=== PATIENT | female | born 1950 | race Caucasian/White ===

== ENCOUNTER 2019-10-14 13:53 | Observation (INO) | payer MEDICARE ==
[2019-10-14] MEDS ORDERED: SODIUM CHLORIDE 0.9% 1,000 ML IV STA (14:16)
--- NOTE | 2019-10-14 14:36 | ED ---
General Adult HPI - General Chief complaint: Shortness of Breath Stated complaint: Abnormal EKG Source: patient, RN notes reviewed, old records reviewed Mode of arrival: ambulatory Limitations: no limitations - History of Present Illness Initial comments: Patient is a 69-year-old female, who presents emergency department today with chief complaint of intermittent dizziness episodes. She also states that she's been having some shortness of breath with laying down. She's been noticing these symptoms since July. She reports that she is generally healthy, does not have a primary care physician. She denies any episodes of chest pain. Patient reports that the dizziness seems to be a rocking [id number] sensation. She denies any nausea or vomiting. She states that she was seen at [facility] and sent here for further evaluation. Patient reports that she did have her ear flushed that time. - Related Data Allergies Allergy/AdvReac Type Severity Reaction Status Date / Time No Known Allergies Allergy Verified 10/14/19 13:57 Review of Systems ROS Statement: Those systems with pertinent positive or pertinent negative responses have been documented in the HPI. ROS Other: All systems not noted in ROS Statement are negative. Past Medical History Past Medical History: No Reported History History of Any Multi-Drug Resistant Organisms: None Reported Past Surgical History: Hysterectomy Past Psychological History: Anxiety Smoking Status: Never smoker Past Alcohol Use History: None Reported Past Drug Use History: None Reported General Exam - General Exam Comments Initial Comments: 69 year old female. Limitations: no limitations General appearance: alert, in no apparent distress Head exam: Present: atraumatic Eye exam: Present: normal appearance, PERRL, EOMI. Absent: scleral icterus, conjunctival injection, periorbital swelling ENT exam: Present: normal exam Neck exam: Present: normal inspection. Absent: tenderness, meningismus, lymphadenopathy Respiratory exam: Present: normal lung sounds bilaterally, other (patient complains of orthopnea). Absent: respiratory distress, wheezes, rales, rhonchi, stridor Cardiovascular Exam: Present: regular rate, normal rhythm, normal heart sounds. Absent: systolic murmur, diastolic murmur, rubs, gallop, clicks GI/Abdominal exam: Present: soft, normal bowel sounds. Absent: distended, tenderness, guarding, rebound, rigid Extremities exam: Present: normal inspection, full ROM, normal capillary refill. Absent: tenderness, pedal edema, joint swelling, calf tenderness Back exam: Present: normal inspection Neurological exam: Present: alert, oriented X3, CN II-XII intact Psychiatric exam: Present: normal affect, normal mood Skin exam: Present: warm, dry, intact, normal color. Absent: rash Course Vital Signs 10/14/19 10/14/19 13:55 16:18 Temperature 98.5 F 98.6 F Pulse Rate 98 86 Respiratory 20 19 Rate Blood Pressure 142/98 138/84 O2 Sat by Pulse 99 98 Oximetry EKG Findings - EKG Comments: EKG Findings:: Sinus rhythm with occasional PVCs, biatrial quadrant. Possible anterior infarct age undetermined. Abnormal EKG. Ventricular rate of 80 bpm. Pulse 156 most seconds. She quaker a 60 ms. QT QTc is 358/433 ms. Medical Decision Making - Medical Decision Making 6-year-old female presents emergency department today with some intermittent dizziness, shortness of breath with laying down. She's been having symptoms for the past few months. At this time patient's labwork was reviewed and unremarkable including troponin and BNP. D-dimer is negative. Patient denies any specific chest pain at this time. She states that she does not her primary care doctor. She is worried because sometimes she does feel concern being by herself when she has some dizzy episodes. She does not describe this as vertigo like symptoms. At this time Patient was offered admission for further cardiac workup for dizziness and she is agreeable to be admitted. I discussed the case with Dr. Barrett who is agreeable to plan. He discussed the case with [facility] hospitalist. Discussed cardiology consult and echo will be ordered. - Lab Data Result diagrams: 10/14/19 14:35 10/14/19 14:35 Lab Results 10/14/19 10/14/19 10/14/19 Range/Units 14:35 14:35 14:35 WBC 9.6 (3.8-10.6) k/uL RBC 5.14 (3.80-5.40) m/uL Hgb 16.0 (11.4-16.0) gm/dL Hct 49.6 H (34.0-46.0) % MCV 96.6 (80.0-100.0) fL MCH 31.2 (25.0-35.0) pg MCHC 32.3 (31.0-37.0) g/dL RDW 12.1 (11.5-15.5) % Plt Count 306 (150-450) k/uL Neutrophils % 75 % Lymphocytes % 18 % Monocytes % 4 % Eosinophils % 1 % Basophils % 1 % Neutrophils # 7.3 (1.3-7.7) k/uL Lymphocytes # 1.8 (1.0-4.8) k/uL Monocytes # 0.3 (0-1.0) k/uL Eosinophils # 0.1 (0-0.7) k/uL Basophils # 0.1 (0-0.2) k/uL PT (9.0-12.0) sec INR (<1.2) APTT (22.0-30.0) sec D-Dimer (<0.60) mg/L FEU Sodium 138 (137-145) mmol/L Potassium 3.8 (3.5-5.1) mmol/L Chloride 104 (98-107) mmol/L Carbon Dioxide 20 L (22-30) mmol/L Anion Gap 14 mmol/L BUN 15 (7-17) mg/dL Creatinine 0.59 (0.52-1.04) mg/dL Est GFR (CKD-EPI)AfAm >90 (>60 ml/min/1.73 sqM) Est GFR (CKD-EPI)NonAf >90 (>60 ml/min/1.73 sqM) Glucose 110 H (74-99) mg/dL Calcium 10.2 (8.4-10.2) mg/dL Total Bilirubin 0.6 (0.2-1.3) mg/dL AST 33 (14-36) U/L ALT 22 (4-34) U/L Alkaline Phosphatase 92 (38-126) U/L Troponin I (0.000-0.034) ng/mL NT-Pro-B Natriuret Pep 167 pg/mL Total Protein 8.9 H (6.3-8.2) g/dL Albumin 5.2 H (3.5-5.0) g/dL Urine Color Urine Appearance (Clear) Urine pH (5.0-8.0) Ur Specific [place] (1.001-1.035) Urine Protein (Negative) Urine Glucose (UA) (Negative) Urine Ketones (Negative) Urine Blood (Negative) Urine Nitrite (Negative) Urine Bilirubin (Negative) Urine Urobilinogen (<2.0) mg/dL Ur Leukocyte Esterase (Negative) Urine WBC (0-5) /hpf Ur Squamous Epith Cells (0-4) /hpf Urine Bacteria (None) /hpf Urine Mucus (None) /hpf 10/14/19 10/14/19 10/14/19 Range/Units 14:35 14:35 14:35 WBC (3.8-10.6) k/uL RBC (3.80-5.40) m/uL Hgb (11.4-16.0) gm/dL Hct (34.0-46.0) % MCV (80.0-100.0) fL MCH (25.0-35.0) pg MCHC (31.0-37.0) g/dL RDW (11.5-15.5) % Plt Count (150-450) k/uL Neutrophils % % Lymphocytes % % Monocytes % % Eosinophils % % Basophils % % Neutrophils # (1.3-7.7) k/uL Lymphocytes # (1.0-4.8) k/uL Monocytes # (0-1.0) k/uL Eosinophils # (0-0.7) k/uL Basophils # (0-0.2) k/uL PT 10.1 (9.0-12.0) sec INR 1.0 (<1.2) APTT 23.7 (22.0-30.0) sec D-Dimer 0.27 (<0.60) mg/L FEU Sodium (137-145) mmol/L Potassium (3.5-5.1) mmol/L Chloride (98-107) mmol/L Carbon Dioxide (22-30) mmol/L Anion Gap mmol/L BUN (7-17) mg/dL Creatinine (0.52-1.04) mg/dL Est GFR (CKD-EPI)AfAm (>60 ml/min/1.73 sqM) Est GFR (CKD-EPI)NonAf (>60 ml/min/1.73 sqM) Glucose (74-99) mg/dL Calcium (8.4-10.2) mg/dL Total Bilirubin (0.2-1.3) mg/dL AST (14-36) U/L ALT (4-34) U/L Alkaline Phosphatase (38-126) U/L Troponin I <0.012 (0.000-0.034) ng/mL NT-Pro-B Natriuret Pep pg/mL Total Protein (6.3-8.2) g/dL Albumin (3.5-5.0) g/dL Urine Color Urine Appearance (Clear) Urine pH (5.0-8.0) Ur Specific [place] (1.001-1.035) Urine Protein (Negative) Urine Glucose (UA) (Negative) Urine Ketones (Negative) Urine Blood (Negative) Urine Nitrite (Negative) Urine Bilirubin (Negative) Urine Urobilinogen (<2.0) mg/dL Ur Leukocyte Esterase (Negative) Urine WBC (0-5) /hpf Ur Squamous Epith Cells (0-4) /hpf Urine Bacteria (None) /hpf Urine Mucus (None) /hpf 10/14/19 Range/Units 14:51 WBC (3.8-10.6) k/uL RBC (3.80-5.40) m/uL Hgb (11.4-16.0) gm/dL Hct (34.0-46.0) % MCV (80.0-100.0) fL MCH (25.0-35.0) pg MCHC (31.0-37.0) g/dL RDW (11.5-15.5) % Plt Count (150-450) k/uL Neutrophils % % Lymphocytes % % Monocytes % % Eosinophils % % Basophils % % Neutrophils # (1.3-7.7) k/uL Lymphocytes # (1.0-4.8) k/uL Monocytes # (0-1.0) k/uL Eosinophils # (0-0.7) k/uL Basophils # (0-0.2) k/uL PT (9.0-12.0) sec INR (<1.2) APTT (22.0-30.0) sec D-Dimer (<0.60) mg/L FEU Sodium (137-145) mmol/L Potassium (3.5-5.1) mmol/L Chloride (98-107) mmol/L Carbon Dioxide (22-30) mmol/L Anion Gap mmol/L BUN (7-17) mg/dL Creatinine (0.52-1.04) mg/dL Est GFR (CKD-EPI)AfAm (>60 ml/min/1.73 sqM) Est GFR (CKD-EPI)NonAf (>60 ml/min/1.73 sqM) Glucose (74-99) mg/dL Calcium (8.4-10.2) mg/dL Total Bilirubin (0.2-1.3) mg/dL AST (14-36) U/L ALT (4-34) U/L Alkaline Phosphatase (38-126) U/L Troponin I (0.000-0.034) ng/mL NT-Pro-B Natriuret Pep pg/mL Total Protein (6.3-8.2) g/dL Albumin (3.5-5.0) g/dL Urine Color Light Yellow Urine Appearance Clear (Clear) Urine pH 5.0 (5.0-8.0) Ur Specific [place] 1.005 (1.001-1.035) Urine Protein Negative (Negative) Urine Glucose (UA) Negative (Negative) Urine Ketones Trace H (Negative) Urine Blood Negative (Negative) Urine Nitrite Negative (Negative) Urine Bilirubin Negative (Negative) Urine Urobilinogen <2.0 (<2.0) mg/dL Ur Leukocyte Esterase Trace H (Negative) Urine WBC 3 (0-5) /hpf Ur Squamous Epith Cells <1 (0-4) /hpf Urine Bacteria Moderate H (None) /hpf Urine Mucus Rare H (None) /hpf Disposition Clinical Impression: Dizziness, Orthopnea Disposition: ADMITTED IP TO THIS HOSP Condition: Stable Is patient prescribed a controlled substance at d/c from ED?: No Referrals: None,Stated [Primary Care Provider] - 1-2 days Time of Disposition: 16:51
[2019-10-14 14:50] LABS: Basophils # (A) 0.1 k/uL (0-0.2); Basophils % (A) 1 %; Eosinophils # (A) 0.1 k/uL (0-0.7); Eosinophils % (A) 1 %; HCT 49.6 % (34.0-46.0); Lymphocytes # (A) 1.8 k/uL (1.0-4.8); Lymphocytes % (A) 18 %; MCH 31.2 pg (25.0-35.0); MCHC 32.3 g/dL (31.0-37.0); MCV 96.6 fL (80.0-100.0); Mean Platelet Volume 7.5; Monocytes # (A) 0.3 k/uL (0-1.0); Monocytes % (A) 4 %; Neutrophils # (A) 7.3 k/uL (1.3-7.7); Neutrophils % (A) 75 %; Platelet Count 306 k/uL (150-450); RBC 5.14 m/uL (3.80-5.40); RDW 12.1 % (11.5-15.5); WBC 9.6 k/uL (3.8-10.6)
[2019-10-14 14:56] LABS: ALT 22 U/L (4-34); AST 33 U/L (14-36); African American GFR (CKD) >90 (>60 ml/min/1.73 sqM); Albumin 5.2 g/dL (3.5-5.0); Alkaline Phosphatase 92 U/L (38-126); Anion Gap 14 mmol/L; Blood Urea Nitrogen 15 mg/dL (7-17); Calcium 10.2 mg/dL (8.4-10.2); Carbon Dioxide 20 mmol/L (22-30); Chloride 104 mmol/L (98-107); Glucose 110 mg/dL (74-99); Non-African American GFR(CKD) >90 (>60 ml/min/1.73 sqM); Potassium 3.8 mmol/L (3.5-5.1); Sodium 138 mmol/L (137-145); Total Bilirubin 0.6 mg/dL (0.2-1.3); Total Protein 8.9 g/dL (6.3-8.2)
[2019-10-14 14:57] LABS: Appearance,Urine Clear (Clear); Bacteria,Urine Moderate /hpf; Bilirubin,Urine Negative (Negative); Blood,Urine Negative (Negative); Color,Urine Light Yellow; Glucose,Urine (UA) Negative (Negative); Ketones,Urine Trace (Negative); Leukocyte Esterase,Urine Trace (Negative); Mucus,Urine Rare /hpf; Nitrite,Urine Negative (Negative); Protein,Urine Negative (Negative); Specific Gravity,Urine 1.005 (1.001-1.035); Squamous Epithelial Cell,Urine <1 /hpf (0-4); Urobilinogen,Urine <2.0 mg/dL (<2.0); WBC,Urine 3 /hpf (0-5)
[2019-10-14 15:00] LABS: Partial Thromboplastin Time 23.7 sec (22.0-30.0); Prothrombin Time 10.1 sec (9.0-12.0)
--- NOTE | 2019-10-14 15:23 | XR ---
EXAMINATION TYPE: XR chest 2V DATE OF EXAM: 10/14/2019 COMPARISON: NONE HISTORY: Dizziness and shortness of breath TECHNIQUE: Frontal and lateral views of the chest are obtained. FINDINGS: There is no focal air space opacity, pleural effusion, or pneumothorax seen. There is pul monary hyperinflation and flattening of the diaphragms, suggesting COPD. The cardiac silhouette size is within normal limits. The osseous structures are intact. Mild multilevel degenerative changes of the spine and diffuse osseous demineralization. There is a levoscoliosis of the thoracolumbar juncti on. IMPRESSION: No acute cardiopulmonary process. COPD.
[2019-10-14] MEDS ORDERED: ONDANSETRON 4 MG/2 ML VIAL IVP PRN (16:51)
[2019-10-14] MEDS ORDERED: ACETAMINOPHEN TAB 325 MG TAB PO PRN (16:51)
[2019-10-14] MEDS ORDERED: NALOXONE 0.4 MG/ML 1 ML VIAL IV PRN (16:51)
[2019-10-14] MEDS ORDERED: MORPHINE SULFATE 4 MG/ML SYRINGE IV PRN (16:51)
[2019-10-14] MEDS ORDERED: IBUPROFEN 400 MG TAB PO PRN (16:51)
[2019-10-14] MEDS: SODIUM CHLORIDE 0.9% 1,000 ML IV SCH (17:30)
[2019-10-14] MEDS ORDERED: ALPRAZolam 0.25 MG TAB PO PRN (21:16)
[2019-10-15 03:57] LABS: Cholesterol 225 mg/dL (<200); HDL Cholesterol 78 mg/dL (40-60); LDL Cholesterol,Calculated 128 mg/dL (0-99); Triglycerides 93 mg/dL (<150)
[2019-10-15] MEDS: SODIUM CHLORIDE 0.9% 1,000 ML IV SCH (04:12)
[2019-10-15 07:57] VITALS: RESP 18
[2019-10-15 11:32] VITALS: TEMP 97.5
--- NOTE | 2019-10-15 12:01 | ECHOF ---
Referral Reason:dizziness MEASUREMENTS -------- HEIGHT: 157.5 cm WEIGHT: 47.2 kg BP: RVIDd: 2.6 cm (< 3.3) IVSd: 1.0 cm (0.6 - 1.1) LVIDd: 2.8 cm (3.9 - 5.3) LVPWd: 0.8 cm (0.6 - 1.1) IVSs: 1.2 cm LVIDs: 1.6 cm LVPWs: 1.1 cm LA Diam: 2.2 cm (2.7 - 3.8) LAESV Index (A-L): 15.00 ml/m Ao Diam: 2.5 cm (2.0 - 3.7) AV Cusp: 1.9 cm (1.5 - 2.6) MV EXCURSION: 13.883 mm (> 18.000) MV EF SLOPE: 63 mm/s (70 - 150) EPSS: 0.2 cm MV E Cecilio: 1.18 m/s MV DecT: 205 ms MV A Cecilio: 0.75 m/s MV E/A Ratio: 1.57 RAP: 5.00 mmHg RVSP: 26.80 mmHg TAPSE: 25.05 mm FINDINGS -------- Sinus rhythm. This was a technically adequate study. The left ventricular size is normal. Left ventricular wall thickness is normal. Overall left vent ricular systolic function is normal with, an EF between 60 - 65 %. The right ventricle is normal in size. Normal LA size by volume 22+/-6 ml/m2. The right atrium is normal in size. Interatrial and interventricular septum intact. The aortic valve is trileaflet and appears structurally normal. The mitral valve is normal. Mild tricuspid regurgitation present. Right ventricular systolic pressure is normal at < 35 mmHg. There is no pulmonic regurgitation present. The aortic root size is normal. Normal inferior vena cava with normal inspiratory collapse consistent with estimated right atrial pre ssure of 5 mmHg. There is no pericardial effusion. CONCLUSIONS -------- 1. Sinus rhythm. 2. This was a technically adequate study. 3. The left ventricular size is normal. 4. Left ventricular wall thickness is normal. 5. Overall left ventricular systolic function is normal with, an EF between 60 - 65 %. 6. The right ventricle is normal in size. 7. Normal LA size by volume 22+/-6 ml/m2. 8. The right atrium is normal in size. 9. Interatrial and interventricular septum intact. 10. The aortic valve is trileaflet and appears structurally normal. 11. The mitral valve is normal. 12. Mild tricuspid regurgitation present. 13. Right ventricular systolic pressure is normal at < 35 mmHg. 14. There is no pulmonic regurgitation present. 15. The aortic root size is normal. 16. Normal inferior vena cava with normal inspiratory collapse consistent with estimated right atrial pressure of 5 mmHg. 17. There is no pericardial effusion. MANNEQUIN MOLD MAKER: Halle Easton RDCS
[2019-10-15 12:46] VITALS: BP 149/87; PULSE 58
--- NOTE | 2019-10-15 13:06 | P.CRDCN ---
History of Present Illness History of present illness: HISTORY OF PRESENTING ILLNESS This is a pleasant 69-year-old female with no significant past medical history. She denies prior history of coronary artery disease, hypertension, marcie betes mellitus or dyslipidemia. She does not follow in the office with a risk engineer for any reason. We have been asked to see in consultation for dizziness. She states she presented to the hospital with symptoms of shortness of breath when she lays down at night. The shortness of breath is mild and does not cause her to not sleep. She denies chest pain or palpitations. She also feels increasingly weak and dizzy sometimes when she changes positions. DIAGNOSTICS EKG reveals sinus mechanism with biatrial enlargement. Chest xray negative for an acute process. Laboratory reviewed, CBC unremarkable, d-dimer 0.27, sodium 138, potassium 3.8, creatinine 0.59, cardiac enzymes negative x3, NTproBNP 167, LDL 128. She takes no daily cardiac medications. REVIEW OF SYSTEMS At the time of my exam: CONSTITUTIONAL: Denies fever or chills. CARDIOVASCULAR: Denies chest pain, shortness of breath, orthopnea, PND or palpitations. RESPIRATORY: Denies cough. GASTROINTESTINAL: Denies abdominal pain, diarrhea, constipation, nausea or vomiting. MUSCULOSKELETAL: Denies myalgias. NEUROLOGIC: Denies numbness, tingling or weakness. ENDOCRINE: Denies fatigue, weight change, polydipsia or polyurina. GENITOURINARY: Denies burning, hematuria or urgency with micturation. HEMATOLOGIC: Denies history of anemia or bleeding. PHYSICAL EXAMINATION Blood pressure 120/77 heart rate 69 afebrile and maintaining oxygen saturation on room air. CONSTITUTIONAL: No apparent distress. HEENT: Head is normocephalic. Pupils are equal, round. Sclerae anicteric. Mucous membranes of the mouth are moist. No JVD. No carotid bruit. CHEST EXAMINATION: Lungs are clear to auscultation. No chest wall tenderness is noted on palpation or with deep breathing. HEART EXAMINATION: Regular rate and rhythm. S1, S2 heard. No murmurs, gallops or rub. ABDOMEN: Soft, nontender. Positive bowel sounds. EXTREMITIES: 2+ peripheral pulses, no lower extremity edema and no calf tenderness. NEUROLOGIC EXAMINATION: Patient is awake, alert and oriented x3. ASSESSMENT Orthopnea Dizziness with activity Dyslipidemia PLAN An acute coronary event has been ruled out. Obtain 2D echocardiogram and doppler study. Orthostatics requested and unremarkable. Telemetry tracings normal with no evidence of arrhythmia. Recommend outpatient stress test when dizziness has resolved. Thank you kindly for this consultation. Nurse Practitioner note has been reviewed, I agree with a documented findings and plan of care. Patient was seen and examined. Past Medical History Past Medical History: No Reported History History of Any Multi-Drug Resistant Organisms: None Reported Past Surgical History: Appendectomy, Bladder Surgery, Section, Hy sterectomy Past Anesthesia/Blood Transfusion Reactions: No Reported Reaction Past Psychological History: Anxiety Smoking Status: Never smoker Past Alcohol Use History: None Reported Past Drug Use History: None Reported Medications and Allergies Home Medications Medication Instructions Recorded Confirmed Type No Known Home Medications 10/14/19 10/14/19 History Allergies Allergy/AdvReac Type Severity Reaction Status Date / Time No Known Allergies Allergy Verified 10/14/19 17:12 Physical Exam Vitals: Vital Signs Temp Pulse Pulse Pulse Resp BP BP 10/15/19 07:25 97.2 F L 69 18 120/77 10/15/19 03:58 98.0 F 67 16 114/72 10/14/19 23:29 98.0 F 61 16 134/67 10/14/19 19:11 98.3 F 89 16 133/89 10/14/19 18:13 10/14/19 17:47 97.5 F L 66 18 154/93 10/14/19 16:18 98.6 F 86 19 138/84 10/14/19 13:55 98.5 F 98 20 142/98 Pulse Ox 10/15/19 07:25 99 10/15/19 03:58 98 10/14/19 23:29 97 10/14/19 19:11 98 10/14/19 18:13 100 10/14/19 17:47 100 10/14/19 16:18 98 10/14/19 13:55 99 Intake and Output 10/14/19 10/15/19 10/15/19 22:59 06:59 14:59 Intake Total 200 Balance 200 Intake: Oral 200 Other: Voiding Method Toilet Toilet # Voids 2 Weight 47.491 kg Results 10/14/19 14:35 10/14/19 14:35 Cardiac Enzymes 10/14/19 10/14/19 10/14/19 Range/Units 14:35 14:35 20:04 AST 33 (14-36) U/L Troponin I <0.012 <0.012 (0.000-0.034) ng/mL 10/15/19 Range/Units 03:26 AST (14-36) U/L Troponin I <0.012 (0.000-0.034) ng/mL Coagulation 10/14/19 Range/Units 14:35 PT 10.1 (9.0-12.0) sec APTT 23.7 (22.0-30.0) sec Lipids 10/15/19 Range/Units 03:29 Triglycerides 93 (<150) mg/dL Cholesterol 225 H (<200) mg/dL HDL Cholesterol 78 H (40-60) mg/dL CBC 10/14/19 Range/Units 14:35 WBC 9.6 (3.8-10.6) k/uL RBC 5.14 (3.80-5.40) m/uL Hgb 16.0 (11.4-16.0) gm/dL Hct 49.6 H (34.0-46.0) % Plt Count 306 (150-450) k/uL Comprehensive Metabolic Panel 10/14/19 Range/Units 14:35 Sodium 138 (137-145) mmol/L Potassium 3.8 (3.5-5.1) mmol/L Chloride 104 (98-107) mmol/L Carbon Dioxide 20 L (22-30) mmol/L BUN 15 (7-17) mg/dL Creatinine 0.59 (0.52-1.04) mg/dL Glucose 110 H (74-99) mg/dL Calcium 10.2 (8.4-10.2) mg/dL AST 33 (14-36) U/L ALT 22 (4-34) U/L Alkaline Phosphatase 92 (38-126) U/L Total Protein 8.9 H (6.3-8.2) g/dL Albumin 5.2 H (3.5-5.0) g/dL Current Medications Generic Name Dose Route Start Last Admin Trade Name Freq PRN Reason Stop Dose Admin Acetaminophen 650 mg 10/14/19 16:51 Tylenol Tab PO Q6HR PRN Mild Pain or Fever > 100.5 Alprazolam 0.25 mg 10/14/19 21:16 10/14/19 21:26 Xanax PO 0.25 mg HS PRN Administration Anxiety Sodium Chloride 1,000 mls @ 100 mls/hr 10/14/19 17:00 10/15/19 04:12 Saline 0.9% IV 100 mls/hr .Q10H ZAY Administration Ibuprofen 400 mg 10/14/19 16:51 Motrin PO Q6HR PRN Mild Pain or Fever > 100.5 Morphine Sulfate 4 mg 10/14/19 16:51 Morphine Sulfate (Inj) IV Q4HR PRN Severe Pain Naloxone HCl 0.2 mg 10/14/19 16:51 Narcan IV Q2M PRN Opioid Reversal Ondansetron HCl 4 mg 10/14/19 16:51 Zofran IVP Q8HR PRN Nausea And Vomiting Intake and Output 10/14/19 10/15/19 10/15/19 22:59 06:59 14:59 Intake Total 200 Balance 200 Intake: Oral 200 Other: Voiding Method Toilet Toilet # Voids 2 Weight 47.491 kg 10/14/19 14:35 10/14/19 14:35
--- NOTE | 2019-10-15 14:39 | P.HPIM ---
History of Present Illness Diagnoses: -Dizziness, nonspecific. Mostly related to her dehydration -Orthostasis were positive, improved with her hydration -Decreased eating and drinking, patient has good appetite today and ate her meals. This is a pleasant 69 years old female with no significant past medical history, and she does not follow up with primary care doctor and she does not take medication as she does not like to do that. She is feeling dizziness for a few days duration, her dizziness was nonspecific, no vertigo or room spinning around her head, no chest pain or dyspnea, no change in urine or bowel habits or vomiting. No other complaints. However patient says for the last few days she's not been eating and drinking well, also she was to use C salt and she stopped doing that lately, which might contribute to her dizziness. Patient r eceived 1 L of normal saline and started on and later per hour, and her dizziness is significantly improved. Patient says that back to her baseline and she wants to be discharged. Patient denies depression, hallucination or delusions. She denies suicidal ideation Patient also stated that she has good appetite today and she finished all her meals. Vitas looks stable, however on admission patient has positive orthostasis, with blood pressure coming down from 147/84 lying to 125/83 sating, with hydration this is improved to 149/87 supine and 131/90 sitting.( unremarkable cbc, inr 1.0 , d-dimer is negative. And 0.27, BMP is unremarkable, serial troponins are negative, UA is suspicious of infection. cardiology evaluated the patient and recommended outpatient stress test and dizziness resol marcia To the emergency room patient received 1 L of normal saline and started on fluids at 100 ml per hour. echocardiogram showing ejection fraction of 60-65%, with aortic valve appears structurally normal. Patient has been evaluated by general technician and cleared her for discharge Problems and management plan were discussed with the patient and he verbalized understanding and acceptance Patient was found stable and can be discharged home however he needs follow-up as an outpatient. Patient was instructed to follow up with PCP within one week and patient agrees. Patient wants to follow up with PCP and general technician at her down, patient is encouraged to call her insurance and find PCP and general technician closer to home. However she was instructed that names for PCP and cardiology around this area will be provided for her and she agrees. Patient wants to make her own appointments. Review of systems CONSTITUTIONAL: No fever, no malaise, no fatigue. HEENT: No recent visual problems or hearing problems. Denied any sore throat. CARDIOVASCULAR: No orthopnea, PND, no palpitations, no syncope. PULMONARY: No shortness of breath, no cough, no hemoptysis. GASTROINTESTINAL: No diarrhea, no nausea, no vomiting, no abdominal pain. Normoactive bowel sounds. NEUROLOGICAL: No headaches, no weakness, no numbness. HEMATOLOGICAL: Denies any bleeding or petechiae. GENITOURINARY: Denies any burning micturition, frequency, or urgency. MUSCULOSKELETAL/RHEUMATOLOGICAL: Denies any joint pain, swelling, or any muscle pain. ENDOCRINE: Denies any polyuria or polydipsia. Physical exam Gen: patient is a AAOx3, no distress -Head and neck: Pupils are equal and reactive to light. Mucous membranes are slightly dry CVS: S1-S2, RRR, no murmur Lungs: B/L CTA, no wheezing Abdomen: soft, no distention, no tenderness, positive bowel sounds Extremity: no leg edema or induration Time spent more than 35 minutes Review of Systems CONSTITUTIONAL: No fever, no malaise, no fatigue. HEENT: No recent visual problems or hearing problems. Denied any sore throat. CARDIOVASCULAR: No orthopnea, PND, no palpitations, no syncope. PULMONARY: No shortness of breath, no cough, no hemoptysis. GASTROINTESTINAL: No diarrhea, no nausea, no vomiting, no abdominal pain. No rmoactive bowel sounds. NEUROLOGICAL: No headaches, no weakness, no numbness. HEMATOLOGICAL: Denies any bleeding or petechiae. GENITOURINARY: Denies any burning micturition, frequency, or urgency. MUSCULOSKELETAL/RHEUMATOLOGICAL: Denies any joint pain, swelling, or any muscle pain. ENDOCRINE: Denies any polyuria or polydipsia. Past Medical History Past Medical History: No Reported History History of Any Multi-Drug Resistant Organisms: None Reported Past Surgical History: Appendectomy, Bladder Surgery, Section, Hysterectomy Past Anesthesia/Blood Transfusion Reactions: No Reported Reaction Past Psychological History: Anxiety Smoking Status: Never smoker Past Alcohol Use History: None Reported Past Drug Use History: None Reported Medications and Allergies Home Medications Medication Instructions Recorded Confirmed Type No Known Home Medications 10/14/19 10/14/19 History Allergies Allergy/AdvReac Type Severity Reaction Status Date / Time No Known Allergies Allergy Verified 10/14/19 17:12 Physical Exam Vitals: Vital Signs Temp Pulse Pulse Pulse Pulse Pulse Pulse 10/15/19 12:45 60 72 58 L 10/15/19 12:00 67 61 62 72 63 10/15/19 11:31 97.5 F L 61 10/15/19 08:46 62 72 63 10/15/19 08:00 67 69 62 72 63 10/15/19 07:25 97.2 F L 69 10/15/19 03:58 98.0 F 67 10/14/19 23:29 98.0 F 61 10/14/19 19:11 98.3 F 89 10/14/19 18:13 10/14/19 17:47 97.5 F L 66 10/14/19 16:18 98.6 F 86 Resp BP BP BP BP BP Pulse Ox 10/15/19 12:45 145/82 131/90 149/87 10/15/19 12:00 18 10/15/19 11:31 18 144/80 95 10/15/19 08:46 125/80 125/83 147/84 100 10/15/19 08:00 18 10/15/19 07:25 18 120/77 99 10/15/19 03:58 16 114/72 98 10/14/19 23:29 16 134/67 97 10/14/19 19:11 16 133/89 98 10/14/19 18:13 100 10/14/19 17:47 18 154/93 100 10/14/19 16:18 19 138/84 98 Intake and Output 10/14/19 10/15/19 10/15/19 22:59 06:59 14:59 Intake Total 200 Balance 200 Intake: Oral 200 Other: Voiding Method Toilet Toilet Toilet # Voids 2 Weight 47.491 kg GENERAL: The patient is alert and oriented x3, not in any acute distress. Well developed, well nourished. HEENT: Pupils are round and equally reacting to light. EOMI. No scleral icterus. No conjunctival pallor. Normocephalic, atraumatic. No pharyngeal erythema. No thyromegaly. CARDIOVASCULAR: S1 and S2 present. No murmurs, rubs, or gallops. PULMONARY: Chest is clear to auscultation, no wheezing or crackles. ABDOMEN: Soft, nontender, nondistended, normoactive bowel sounds. No palpable organomegaly. MUSCULOSKELETAL: No joint swelling or deformity. EXTREMITIES: No cyanosis, clubbing, or pedal edema. NEUROLOGICAL: Gross neurological examination did not reveal any focal deficits. SKIN: No rashes. No petechiae Results CBC & Chem 7: 10/14/19 14:35 10/14/19 14:35 Labs: Abnormal Lab Results - Last 24 Hours (Table) 10/14/19 10/14/19 10/14/19 Range/Units 14:35 14:35 14:51 Hct 49.6 H (34.0-46.0) % Carbon Dioxide 20 L (22-30) mmol/L Glucose 110 H (74-99) mg/dL Total Protein 8.9 H (6.3-8.2) g/dL Albumin 5.2 H (3.5-5.0) g/dL Cholesterol (<200) mg/dL LDL Cholesterol, Calc (0-99) mg/dL HDL Cholesterol (40-60) mg/dL Urine Ketones Trace H (Negative) Ur Leukocyte Esterase Trace H (Negative) Urine Bacteria Moderate H (None) /hpf Urine Mucus Rare H (None) /hpf 10/15/19 Range/Units 03:29 Hct (34.0-46.0) % Carbon Dioxide (22-30) mmol/L Glucose (74-99) mg/dL Total Protein (6.3-8.2) g/dL Albumin (3.5-5.0) g/dL Cholesterol 225 H (<200) mg/dL LDL Cholesterol, Calc 128 H (0-99) mg/dL HDL Cholesterol 78 H (40-60) mg/dL Urine Ketones (Negative) Ur Leukocyte Esterase (Negative) Urine Bacteria (None) /hpf Urine Mucus (None) /hpf Thrombosis Risk Factor Assmnt - Choose All That Apply Any of the Below Risk Factors Present?: No Other Risk Factors: Yes
== END 2019-10-15 15:15 | disposition home or self-care (01) ==
LOC: EC 13:53 → 1SOBS 16:48
PROVIDERS: ADMIT Hospitalist; ATTEND Hospitalist
DX: R42 Dizziness and giddiness (principal); E86.0 Dehydration; E78.5 Hyperlipidemia, unspecified; F41.9 Anxiety disorder, unspecified; Z90.710 Acquired absence of both cervix and uterus; I51.7 Cardiomegaly; R06.01 Orthopnea
CPT/HCPCS: 93005 ×2; 96361; 96360; 99285; 36415; 93306; 85379; 83880; 80061; 80053; 84484 ×2; 85025; 85610; 85730; 81001; 71046; G0378 ×2

== ENCOUNTER 2019-10-15 23:50 | Emergency (ER) | payer MEDICARE ==
[2019-10-16] MEDS ORDERED: SODIUM CHLORIDE 0.9% 1,000 ML IV STA (00:08)
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
[2019-10-16 00:33] LABS: Basophils # (A) 0.1 k/uL (0-0.2); Basophils % (A) 1 %; Eosinophils # (A) 0.2 k/uL (0-0.7); Eosinophils % (A) 2 %; HCT 47.6 % (34.0-46.0); HGB 15.3 gm/dL (11.4-16.0); Lymphocytes # (A) 2.5 k/uL (1.0-4.8); Lymphocytes % (A) 30 %; MCH 31.2 pg (25.0-35.0); MCV 97.4 fL (80.0-100.0); Mean Platelet Volume 7.8; Monocytes # (A) 0.4 k/uL (0-1.0); Monocytes % (A) 5 %; Neutrophils # (A) 5.1 k/uL (1.3-7.7); Neutrophils % (A) 61 %; Platelet Count 290 k/uL (150-450); RBC 4.89 m/uL (3.80-5.40); RDW 12.3 % (11.5-15.5); WBC 8.4 k/uL (3.8-10.6)
[2019-10-16 00:43] LABS: ALT 24 U/L (4-34); AST 33 U/L (14-36); African American GFR (CKD) >90 (>60 ml/min/1.73 sqM); Albumin 4.7 g/dL (3.5-5.0); Alkaline Phosphatase 79 U/L (38-126); Anion Gap 11 mmol/L; Blood Urea Nitrogen 16 mg/dL (7-17); Calcium 9.5 mg/dL (8.4-10.2); Carbon Dioxide 22 mmol/L (22-30); Chloride 108 mmol/L (98-107); Creatine Kinase 51 U/L (30-135); Glucose 140 mg/dL (74-99); Magnesium 2.4 mg/dL (1.6-2.3); Non-African American GFR(CKD) >90 (>60 ml/min/1.73 sqM); Phosphorus 3.4 mg/dL (2.5-4.5); Potassium 3.6 mmol/L (3.5-5.1); Sodium 141 mmol/L (137-145); Total Bilirubin 0.6 mg/dL (0.2-1.3)
[2019-10-16 00:50] LABS: D-Dimer 0.28 mg/L FEU (<0.60); Partial Thromboplastin Time 23.4 sec (22.0-30.0); Prothrombin Time 10.1 sec (9.0-12.0)
[2019-10-16 02:11] LABS: Appearance,Urine Clear (Clear); Bacteria,Urine Few /hpf; Bilirubin,Urine Negative (Negative); Blood,Urine Negative (Negative); Color,Urine Light Yellow; Glucose,Urine (UA) Trace (Negative); Ketones,Urine Negative (Negative); Leukocyte Esterase,Urine Large (Negative); Mucus,Urine Rare /hpf; Nitrite,Urine Positive (Negative); Protein,Urine Negative (Negative); RBC,Urine 3 /hpf (0-5); Specific Gravity,Urine 1.008 (1.001-1.035); Squamous Epithelial Cell,Urine 1 /hpf (0-4); Urobilinogen,Urine <2.0 mg/dL (<2.0); WBC,Urine 41 /hpf (0-5)
[2019-10-16] MEDS ORDERED: cefTRIAXone IN SWFI 1,000 MG/10 ML SYRINGE IVP STA (02:30)
[2019-10-16] MEDS ORDERED: NITROFURANTOIN MONOHYD/M-CRYST 100 MG CAP PO STA (02:30)
[2019-10-16 02:54] VITALS: BP 149/92; PULSE 69; RESP 18; TEMP 98
== END 2019-10-16 03:07 | disposition home or self-care (01) ==
LOC: EC 23:50
DX: N39.0 Urinary tract infection, site not specified (principal); E86.0 Dehydration
CPT/HCPCS: 36415; 93005; 85379; 83880; 80053; 82550; 83605; 83735; 84100; 84484; 85025; 85610; 85730; 81001; 87086; 87077; 87186; 99285; 96374; 96361; J0696

== ENCOUNTER 2022-12-15 15:49 | Observation (INO) | payer MEDICARE ==
[2022-12-15] MEDS ORDERED: SODIUM CHLORIDE 0.9% 1,000 ML IV STA (16:25)
--- NOTE | 2022-12-15 16:31 | ED ---
General Adult HPI - General Chief complaint: Headache Stated complaint: weakness Time Seen by Provider: 12/15/22 16:05 Source: patient, job development specialist Mode of arrival: EMS Limitations: no limitations - History of Present Illness Initial comments: 72-year-old female presents emergency room with multiple complaints. Reports to presyncope, headache, pressure at the base of her neck, plugged ears, nausea, left foot numbness. States that her symptoms have been going on for the past several weeks, and even months. She has had to see primary care regarding her symptoms. Reports that her symptoms are worse upon standing. Has some blurred vision. No unilateral numbness or weakness. No history of stroke. No speech deficit. Denies fevers. No vomiting. Denies any chest pain. Does admit to mild shortness of breath. No diarrhea. No black or bloody stools. No urinary complaints. No other alleviating, precipitating or modifying factors - Related Data Home Medications Medication Instructions Recorded Confirmed Atorvastatin Calcium 10 mg PO HS 12/15/22 12/15/22 Allergies Allergy/AdvReac Type Severity Reaction Status Date / Time No Known Allergies Allergy Verified 12/15/22 19:03 Review of Systems ROS Statement: Those systems with pertinent positive or pertinent negative responses have been documented in the HPI. ROS Other: All systems not noted in ROS Statement are negative. Past Medical History Past Medical History: No Reported History History of Any Multi-Drug Resistant Organisms: None Reported Past Surgical History: Appendectomy, Bladder Surgery, Section, Hysterectomy Past Anesthesia/Blood Transfusion Reactions: No Reported Reaction Past Psychological History: Anxiety Past Alcohol Use History: None Reported Past Drug Use History: None Reported General Exam Limitations: no limitations General appearance: alert, in no apparent distress Head exam: Present: atraumatic, normocephalic, normal inspection Eye exam: Present: normal appearance, PERRL, EOMI. Absent: scleral icterus, conjunctival injection, periorbital swelling ENT exam: Present: normal exam, mucous membranes moist Neck exam: Present: normal inspection. Absent: tenderness, meningismus, lymphadenopathy Respiratory exam: Present: normal lung sounds bilaterally. Absent: respiratory distress, wheezes, rales, rhonchi, stridor Cardiovascular Exam: Present: regular rate, normal rhythm, normal heart sounds. Absent: systolic murmur, diastolic murmur, rubs, gallop, clicks GI/Abdominal exam: Present: soft, normal bowel sounds. Absent: distended, tenderness, guarding, rebound, rigid Extremities exam: Present: normal inspection, full ROM, normal capillary refill, other (2+ DP and PT pulses. Cap refill less than 3 seconds.). Absent: tenderness, pedal edema, joint swelling, calf tenderness Back exam: Present: normal inspection Neurological exam: Present: alert, oriented X3, CN II-XII intact Psychiatric exam: Present: normal affect, normal mood Skin exam: Present: warm, dry, intact, normal color. Absent: rash Course Vital Signs 12/15/22 12/15/22 12/15/22 15:55 17:40 19:52 Temperature 97.8 F Pulse Rate 71 69 66 Respiratory 19 19 18 Rate Blood Pressure 156/83 161/89 O2 Sat by Pulse 100 99 Oximetry EKG Findings - EKG Comments: EKG Findings:: EKG demonstrates sinus rhythm with a rate of 67. MS interval 158. QRS 85. QTC 413. No acute ST segment elevations. Inverted T-wave in lead 3 Medical Decision Making - Medical Decision Making Was pt. sent in by a medical professional or institution (, PA, LINOTYPE OPERATOR, urgent care, hospital, or senior living...) When possible be specific @ -[No] Did you speak to anyone other than the patient for history (EMS, parent, family, police, friend...)? What history was obtained from this source @ -[No] Did you review nursing and triage notes (agree or disagree)? Why? @ -[I reviewed and agree with nursing and triage notes] Were old charts reviewed (outside hosp., previous admission, EMS record, old EKG, old radiological studies, urgent care reports/EKG's, senior living records)? Report findings @ -[No old charts were reviewed] Differential Diagnosis (chest pain, altered mental status, abdominal pain women, abdominal pain men, vaginal bleeding, weakness, fever, dyspnea, syncope, headache, dizziness, GI bleed, back pain, seizure, CVA, palpatations, mental health, musculoskeletal)? @ -[not applicable] EKG interpreted by me (3pts min.). @ -[As above] X-rays interpreted by me (1pt min.). @ -[None done] CT interpreted by me (1pt min.). @ -[None done] U/S interpreted by me (1pt. min.). @ -[None done] What testing was considered but not performed or refused? (CT, X-rays, U/S, labs)? Why? @ -[None] What meds were considered but not given or refused? Why? @ -[None] Did you discuss the management of the patient with other professionals (professionals i.e. Dr., PA, LINOTYPE OPERATOR, lab, RT, psych nurse, social service technician, lawyer real estate, teacher, radiological defense officer, complex case manager)? Give summary @ -[No] Was smoking cessation discussed for >3mins.? @ -[No] Was critical care preformed (if so, how long)? @ -[No] Were there social determinants of health that impacted care today? How? (H omelessness, low income, unemployed, alcoholism, drug addiction, transportation, low edu. Level, literacy, decrease access to med. care, detention, rehab)? @ -[No] Was there de-escalation of care discussed even if they declined (Discuss DNR or withdrawal of care, Hospice)? DNR status @ -[No] What co-morbidities impacted this encounter? (DM, HTN, Smoking, COPD, CAD, Cancer, CVA, ARF, Chemo, Hep., AIDS, mental health diagnosis, sleep apnea, morbid obesity)? @ -[None] Was patient admitted / discharged? Hospital course, mention meds given and route, prescriptions, significant lab abnormalities, going to OR and other pertinent info. @ -Upon arrival patient was placed into room 1. History of physical exam is performed. IV is established laboratory studies were conducted. Patient is positive for Covid. CT demonstrates no acute intracranial process. Results are discussed the patient. I felt that the patient was stable for discharge however she reports that she is to weak that she doesn't feel that she can go home on her own. I did discuss the case with Dr. Aragon she was agreeable to admission for some fluid hydration. Patient admitted to the floor in stable condition Undiagnosed new problem with uncertain prognosis? @ -[No] Drug Therapy requiring intensive monitoring for toxicity (Heparin, Nitro, Insulin, Cardizem)? @ -[No] Were any procedures done? @ -[No] Diagnosis/symptom? @ -[default] Acute, or Chronic, or Acute on Chronic? @ -[default] Uncomplicated (without systemic symptoms) or Complicated (systemic symptoms)? @ -[default] Side effects of treatment? @ -[No] Exacerbation, Progression, or Severe Exacerbation? @ -[No] Poses a threat to life or bodily function? How? (Chest pain, USA, PA, pneumonia, PE, COPD, DKA, ARF, appy, cholecystitis, CVA, Diverticulitis, Homicidal, Suicidal, threat to staff... and all critical care pts) @ -[No] - Lab Data Result diagrams: 12/15/22 16:53 12/15/22 16:53 Lab Results 12/15/22 12/15/22 12/15/22 Range/Units 16:53 16:53 16:53 WBC 9.3 (3.8-10.6) k/uL RBC 4.81 (3.80-5.40) m/uL Hgb 15.4 (11.4-16.0) gm/dL Hct 44.9 (34.0-46.0) % MCV 93.4 (80.0-100.0) fL MCH 32.0 (25.0-35.0) pg MCHC 34.2 (31.0-37.0) g/dL RDW 12.7 (11.5-15.5) % Plt Count 267 (150-450) k/uL MPV 7.6 Neutrophils % 85 % Lymphocytes % 11 % Monocytes % 2 % Eosinophils % 1 % Basophils % 0 % Neutrophils # 7.9 H (1.3-7.7) k/uL Lymphocytes # 1.0 (1.0-4.8) k/uL Monocytes # 0.2 (0-1.0) k/uL Eosinophils # 0.1 (0-0.7) k/uL Basophils # 0.0 (0-0.2) k/uL PT 11.1 (9.0-12.0) sec INR 1.1 (<1.2) Sodium 131 L (137-145) mmol/L Potassium 4.2 (3.5-5.1) mmol/L Chloride 99 (98-107) mmol/L Carbon Dioxide 22 (22-30) mmol/L Anion Gap 10 mmol/L BUN 9 (7-17) mg/dL Creatinine 0.37 L (0.52-1.04) mg/dL Est GFR (CKD-EPI)AfAm >90 (>60 ml/min/1.73 sqM) Est GFR (CKD-EPI)NonAf >90 (>60 ml/min/1.73 sqM) Glucose 127 H (74-99) mg/dL Calcium 9.3 (8.4-10.2) mg/dL Total Bilirubin 0.7 (0.2-1.3) mg/dL AST 39 H (14-36) U/L ALT 49 H (4-34) U/L Alkaline Phosphatase 123 (38-126) U/L Troponin I (0.000-0.034) ng/mL Total Protein 8.0 (6.3-8.2) g/dL Albumin 4.5 (3.5-5.0) g/dL TSH 3.160 (0.465-4.680) mIU/L Urine Color Urine Appearance (Clear) Urine pH (5.0-8.0) Ur Specific Woden (1.001-1.035) Urine Protein (Negative) Urine Glucose (UA) (Negative) Urine Ketones (Negative) Urine Blood (Negative) Urine Nitrite (Negative) Urine Bilirubin (Negative) Urine Urobilinogen (<2.0) mg/dL Ur Leukocyte Esterase (Negative) Urine RBC (0-5) /hpf Urine WBC (0-5) /hpf Ur Squamous Epith Cells (0-4) /hpf Influenza Type A (PCR) (Not Detectd) Influenza Type B (PCR) (Not Detectd) RSV (PCR) (Not Detectd) SARS-CoV-2 (PCR) (Not Detectd) 12/15/22 12/15/22 12/15/22 Range/Units 16:53 16:53 17:40 WBC (3.8-10.6) k/uL RBC (3.80-5.40) m/uL Hgb (11.4-16.0) gm/dL Hct (34.0-46.0) % MCV (80.0-100.0) fL MCH (25.0-35.0) pg MCHC (31.0-37.0) g/dL RDW (11.5-15.5) % Plt Count (150-450) k/uL MPV Neutrophils % % Lymphocytes % % Monocytes % % Eosinophils % % Basophils % % Neutrophils # (1.3-7.7) k/uL Lymphocytes # (1.0-4.8) k/uL Monocytes # (0-1.0) k/uL Eosinophils # (0-0.7) k/uL Basophils # (0-0.2) k/uL PT (9.0-12.0) sec INR (<1.2) Sodium (137-145) mmol/L Potassium (3.5-5.1) mmol/L Chloride (98-107) mmol/L Carbon Dioxide (22-30) mmol/L Anion Gap mmol/L BUN (7-17) mg/dL Creatinine (0.52-1.04) mg/dL Est GFR (CKD-EPI)AfAm (>60 ml/min/1.73 sqM) Est GFR (CKD-EPI)NonAf (>60 ml/min/1.73 sqM) Glucose (74-99) mg/dL Calcium (8.4-10.2) mg/dL Total Bilirubin (0.2-1.3) mg/dL AST (14-36) U/L ALT (4-34) U/L Alkaline Phosphatase (38-126) U/L Troponin I <0.012 (0.000-0.034) ng/mL Total Protein (6.3-8.2) g/dL Albumin (3.5-5.0) g/dL TSH (0.465-4.680) mIU/L Urine Color Colorless Urine Appearance Clear (Clear) Urine pH 7.0 (5.0-8.0) Ur Specific [place]oden 1.004 (1.001-1.035) Urine Protein Negative (Negative) Urine Glucose (UA) Negative (Negative) Urine Ketones 1+ H (Negative) Urine Blood Negative (Negative) Urine Nitrite Negative (Negative) Urine Bilirubin Negative (Negative) Urine Urobilinogen <2.0 (<2.0) mg/dL Ur Leukocyte Esterase Trace H (Negative) Urine RBC 1 (0-5) /hpf Urine WBC 1 (0-5) /hpf Ur Squamous Epith Cells <1 (0-4) /hpf Influenza Type A (PCR) Not Detected (Not Detectd) Influenza Type B (PCR) Not Detected (Not Detectd) RSV (PCR) Not Detected (Not Detectd) SARS-CoV-2 (PCR) Detected A (Not Detectd) Disposition Clinical Impression: COVID-19, Acute respiratory insufficiency, Cephalgia, Pre-syncope Disposition: ADMITTED IP TO THIS HOSP Condition: Stable Is patient prescribed a controlled substance at d/c from ED?: No Time of Disposition: 19:02 Decision to Admit Reason: Admit from EC Decision Date: 12/15/22 Decision Time: 19:02
[2022-12-15 17:05] LABS: Basophils % (A) 0 %; Eosinophils # (A) 0.1 k/uL (0-0.7); Eosinophils % (A) 1 %; HCT 44.9 % (34.0-46.0); HGB 15.4 gm/dL (11.4-16.0); Lymphocytes % (A) 11 %; MCHC 34.2 g/dL (31.0-37.0); MCV 93.4 fL (80.0-100.0); Mean Platelet Volume 7.6; Monocytes # (A) 0.2 k/uL (0-1.0); Monocytes % (A) 2 %; Neutrophils # (A) 7.9 k/uL (1.3-7.7); Neutrophils % (A) 85 %; Platelet Count 267 k/uL (150-450); RBC 4.81 m/uL (3.80-5.40); RDW 12.7 % (11.5-15.5); WBC 9.3 k/uL (3.8-10.6)
[2022-12-15 17:10] LABS: INR 1.1 (<1.2); Prothrombin Time 11.1 sec (9.0-12.0)
[2022-12-15 17:27] LABS: ALT 49 U/L (4-34); AST 39 U/L (14-36); African American GFR (CKD) >90 (>60 ml/min/1.73 sqM); Albumin 4.5 g/dL (3.5-5.0); Alkaline Phosphatase 123 U/L (38-126); Anion Gap 10 mmol/L; Blood Urea Nitrogen 9 mg/dL (7-17); Calcium 9.3 mg/dL (8.4-10.2); Carbon Dioxide 22 mmol/L (22-30); Chloride 99 mmol/L (98-107); Glucose 127 mg/dL (74-99); Non-African American GFR(CKD) >90 (>60 ml/min/1.73 sqM); Potassium 4.2 mmol/L (3.5-5.1); Sodium 131 mmol/L (137-145); Total Bilirubin 0.7 mg/dL (0.2-1.3)
--- NOTE | 2022-12-15 17:27 | XR ---
EXAMINATION TYPE: XR chest 2V DATE OF EXAM: 12/15/2022 COMPARISON: NONE HISTORY: Dizziness TECHNIQUE: 2 views FINDINGS: Heart and mediastinum are normal. Lungs are clear. Diaphragm is normal. Bony thorax is inta ct. There are chest leads. The pulmonary vascularity is normal. IMPRESSION: Normal chest. No change.
--- NOTE | 2022-12-15 17:43 | CT ---
EXAMINATION TYPE: CT brain anjali randhawa con DATE OF EXAM: 12/15/2022 COMPARISON: None HISTORY: speech deficit, dizziness. CT DLP: 1229.1 mGycm Automated exposure control for dose reduction was used. Images of the brain and cervical spine obtained with no contrast. Ventricles have normal size. There is no mass effect or midline shift. No sign of intracranial hemorr roderick. The calvarium is intact. There is normal aeration of the mastoid sinuses. Sella turcica is norm al. The skull base is intact. The cervical vertebra have fairly normal alignment. There is mild disc space narrowing at C6-7. Facet joints are intact. There is mild cervical hypertrophic facet arthropathy. No compression fracture. N o subluxation. Prevertebral soft tissues are intact. IMPRESSION: Mild degenerative disc changes in the cervical spine. No fracture. Cerebral atrophy. No acute intracranial abnormality.
[2022-12-15 18:12] LABS: Appearance,Urine Clear (Clear); Bilirubin,Urine Negative (Negative); Blood,Urine Negative (Negative); Color,Urine Colorless; Glucose,Urine (UA) Negative (Negative); Ketones,Urine 1+ (Negative); Leukocyte Esterase,Urine Trace (Negative); Nitrite,Urine Negative (Negative); Protein,Urine Negative (Negative); RBC,Urine 1 /hpf (0-5); Specific Gravity,Urine 1.004 (1.001-1.035); Squamous Epithelial Cell,Urine <1 /hpf (0-4); Urobilinogen,Urine <2.0 mg/dL (<2.0); WBC,Urine 1 /hpf (0-5)
[2022-12-15] MEDS ORDERED: ACETAMINOPHEN TAB 325 MG TAB PO PRN (19:03)
[2022-12-15] MEDS ORDERED: IBUPROFEN 400 MG TAB PO PRN (19:03)
[2022-12-15] MEDS ORDERED: NALOXONE 0.4 MG/ML 1 ML VIAL IV PRN (19:03)
[2022-12-15] MEDS: FLUTICASONE 50MCG/SPRAY NASAL 16GM EA NOSTRIL SCH (19:52)
[2022-12-15] MEDS ORDERED: ATORVASTATIN 10 MG TAB PO SCH (21:00)
[2022-12-15] MEDS: SODIUM CHLORIDE 0.9% 1,000 ML IV SCH (22:31)
[2022-12-16] MEDS ORDERED: MELATONIN 3 MG TABLET PO PRN (00:09)
[2022-12-16] MEDS: SODIUM CHLORIDE 0.9% 1,000 ML IV SCH ×2 (02:55→12:31)
[2022-12-16 04:07] VITALS: RESP 18
[2022-12-16 08:06] VITALS: BP 127/82; PULSE 74; TEMP 98.2
[2022-12-16] MEDS ORDERED: LORATADINE 10 MG TAB PO SCH (09:00)
[2022-12-16 09:16] LABS: African American GFR (CKD) 111.3 (60.0-200.0); Anion Gap 9.6 mmol/L (10.00-18.00); BUN/Creat Ratio 13.4 Ratio (12.00-20.00); Blood Urea Nitrogen 6.7 mg/dL (9.0-27.0); Calcium 8.7 mg/dL (8.7-10.3); Carbon Dioxide 20.4 mmol/L (20.0-27.5); Potassium 4.2 mmol/L (3.5-5.5)
[2022-12-16] MEDS: FLUTICASONE 50MCG/SPRAY NASAL 16GM EA NOSTRIL SCH (09:31)
[2022-12-16 09:47] LABS: Basophils # (A) 0.06 X 10*3/uL (0.00-0.10); Basophils % (A) 0.6 %; HCT 39.9 % (37.2-46.3); HGB 13.2 g/dL (12.0-15.0); Immature Grans, Automated 0.4 %; Lymphocytes # (A) 1.89 X 10*3/uL (0.90-5.00); Lymphocytes % (A) 18.9 %; MCH 31.1 pg (27.0-32.0); MCHC 33.1 g/dL (32.0-37.0); MCV 93.9 fL (80.0-97.0); Monocytes # (A) 0.68 X 10*3/uL (0.20-1.00); Monocytes % (A) 6.8 %; NRBC Per 100 WBC 0 /100 WBCS (0.0-0.0); Neutrophils # (A) 7.24 X 10*3/uL (1.80-7.70); Neutrophils % (A) 72.3 %; Platelet Count 293 X 10*3/uL (140-440); RBC 4.25 X 10*6/uL (4.10-5.20); RDW 12.7 % (11.5-14.5); WBC 10.01 X 10*3/uL (4.50-10.00)
[2022-12-16] MEDS ORDERED: dexAMETHasone 4 MG TAB PO SCH (10:00)
[2022-12-16] MEDS ORDERED: ASPIRIN 81 MG PO SCH (10:00)
[2022-12-16] MEDS ORDERED: CHOLECALCIFEROL 25 MCG (1000 IU) TABLET PO SCH (10:00)
[2022-12-16] MEDS ORDERED: PANTOPRAZOLE 40 MG TABLET PO SCH (10:00)
[2022-12-16] MEDS ORDERED: ZINC SULFATE 220 MG CAP PO SCH (10:00)
[2022-12-16] MEDS ORDERED: ASCORBIC ACID 500 MG TAB PO SCH (21:00)
--- NOTE | 2022-12-17 13:37 | CA ---
Transthoracic Echo Report Name: Rosmery Lance Age: 72 Gender: F : 1950 Exam Date: 12/16/2022 13:43 Exam Location: [facility] Ht (in): 62 Wt (lb): 145 Ordering Physician: May Navarro DO Attending/Referring Phys: [id number], Ramon Rn Tele Sweta Prajapati, [facility] Procedure CPT: Indications: presyncope Cardiac Hx: Technical Quality: Fair Contrast 1: Total Dose (mL): Contrast 2: Total Dose (mL): MEASUREMENTS (Male / Female) Normal Values M-MODE Aortic Root Diameter MM 2.5 cm AV Cusp Separation MM 1.5 cm DOPPLER MV Area PHT 3.1 cm??? Mitral E Point Velocity 77.8 cm/s Mitral A Point Velocity 94.5 cm/s Mitral E to A Ratio 0.8 MV Deceleration Time 243.8 ms TR Peak Velocity 298.3 cm/s TR Peak Gradient 35.6 mmHg Right Atrial Pressure 3.0 mmHg Pulmonary Artery Systolic Pressu 38.6 mmHg Right Ventricular Systolic Press 38.6 mmHg FINDINGS Left Ventricle Left ventricular ejection fraction is estimated at 60-65 %. Left ventricular cavity size normal. Right Ventricle Normal right ventricular size. Normal right ventricular global systolic function. Mild pulmonary hypertension. Right Atrium Normal right atrial size. Left Atrium Normal left atrial size. Mitral Valve Mild mitral annular calcification. Aortic Valve LVOT obstruction.aortic valve sclerosis. Tricuspid Valve [id number] tricuspid regurgitation.structurally normal tricuspid valve. Pulmonic Valve Pulmonic valve not well visualized. Pericardium No pericardial effusion. Aorta Aorta at the level of the sinuses of valsalva (root) normal. Ascending aorta is not well visualized. CONCLUSIONS 1. Normal left ventricle size and systolic function with suggestion of LVOT gradient although not well visualized 2. Mild to moderate tricuspid regurgitation with mild pulmonary hypertension Previewed by: Dr. Etienne Guerrero MD (Electronically Signed) Final Date: 17 December 2022 13:37
--- NOTE | 2022-12-18 10:43 | P.HPIM ---
History of Present Illness H&P Date: 12/16/22 Chief Complaint: Covid-19 History and Physical and Discharge Summary: This is a 71-year-old female with past medical history of anxiety, presented to the ER with multiple complaints including lightheadedness, cephalgia, nausea, shortness of breath. Tested positive for Covid-19. Received IV fluid hydration, Covid cocktail with significant clinical improvement. Currently ambulating in room, tolerating exertion well. Denies lightheadedness dizziness or focal deficits. Denies chest pain, palpitations or shortness of breath. Troponin negative 1, EKG reported sinus rhythm. Afebrile, WBC 10, hematology/coagulation panels unremarkable, electrolytes and renal function stable. Radiology studies reported negative. Review of Systems ROS Statement: Those systems with pertinent positive or pertinent negative responses have been documented in the HPI. ROS Other: All systems not noted in ROS Statement are negative. Past Medical History Past Medical History: No Reported History History of Any Multi-Drug Resistant Organisms: None Reported Past Surgical History: Appendectomy, Bladder Surgery, Section, Hysterectomy Past Anesthesia/Blood Transfusion Reactions: No Reported Reaction Past Psychological History: Anxiety Past Alcohol Use History: None Reported Past Drug Use History: None Reported Medications and Allergies Home Medications Medication Instructions Recorded Confirmed Type Atorvastatin Calcium 10 mg PO HS 12/15/22 12/15/22 History Ascorbic Acid [Vitamin C] 500 mg PO BID tab 12/16/22 Rx Aspirin EC [Ecotrin Low Dose] 81 mg PO DAILY #60 tab 12/16/22 Rx Cholecalciferol [Vitamin D3 (25 25 mcg PO DAILY tab 12/16/22 Rx Mcg = 1000 Iu)] Pantoprazole [Protonix] 40 mg PO AC-BRKFST #30 tab 12/16/22 Rx Zinc Sulfate [Orazinc] 220 mg PO DAILY #30 cap 12/16/22 Rx dexAMETHasone ORAL [Hexadrol] 4 mg PO DAILY #9 tab 12/16/22 Rx Allergies Allergy/AdvReac Type Severity Reaction Status Date / Time No Known Allergies Allergy Verified 12/15/22 19:03 Physical Exam GENERAL: Sitting up in chair, No acute distress, maintaining O2 sats of 100% on room air HEENT: Head is normocephalic. Pupils are equal, round. Sclerae anicteric. Mucous membranes of the mouth are moist. Neck: Supple, No JVD. CHEST EXAMINATION: Unlabored, Lungs are clear to auscultation. No chest wall tenderness is noted on palpation or with deep breathing. HEART EXAMINATION: Regular rate and rhythm. S1, S2 heard. No murmurs, gallops or rub. ABDOMEN: Soft, nondistended, nontender. Positive bowel sounds. EXTREMITIES: 2+ peripheral pulses, no lower extremity edema and no calf tenderness. NEUROLOGIC EXAMINATION: Patient is awake, alert and oriented x3. Cranial nerves II through XII grossly intact, no focal deficits. Results CBC & Chem 7: 12/16/22 04:48 12/16/22 04:48 Assessment and Plan Assessment: Acute Covid 19 infection Anxiety Plan: Continue on current medication regime ,monitoring and symptomatic treatment. Significant clinical improvement. Denies chest pain, palpitations, shortness of breath. Denies lightheadedness dizziness or focal deficits. Denies headache. Tolerating breakfast with no nausea vomiting or diarrhea. Maintaining O2 sats in the high 90s to 100% on room air. Patient will be discharged home today in a stable condition with guarded prognosis on Covid cocktail, including completing Decadron for total of 10 days, Paxlovid and educa lyric on quarantine. Discharge Medication List Atorvastatin Calcium 10 mg PO HS 12/15/22 [History] Ascorbic Acid [Vitamin C] 500 mg PO BID tab 12/16/22 [Rx] Aspirin EC [Ecotrin Low Dose] 81 mg PO DAILY #60 tab 12/16/22 [Rx] Cholecalciferol [Vitamin D3 (25 Mcg = 1000 Iu)] 25 mcg PO DAILY tab 12/16/22 [Rx] Pantoprazole [Protonix] 40 mg PO AC-BRKFST #30 tab 12/16/22 [Rx] Zinc Sulfate [Orazinc] 220 mg PO DAILY #30 cap 12/16/22 [Rx] dexAMETHasone ORAL [Hexadrol] 4 mg PO DAILY #9 tab 12/16/22 [Rx] The impression and plan of care has been dictated as directed. : I performed a history and examination of this patient, discussed the same with the dictator. I agree with the dictator's note ,documented as a scribe. Any additional findings or plans will be noted.
== END 2022-12-16 16:52 | disposition home or self-care (01) ==
LOC: EC 15:49 → 6NMEDSUR 19:03
PROVIDERS: ADMIT Family Medicine; ATTEND Family Medicine
DX: U07.1 COVID-19 (principal); R06.89 Other abnormalities of breathing; M54.2 Cervicalgia; R55 Syncope and collapse; F41.9 Anxiety disorder, unspecified; Z79.82 Long term (current) use of aspirin; Z79.899 Other long term (current) drug therapy
CPT/HCPCS: 99285; 36415; 93005; 93306; 97162; 80053; 80048; 84443; 84484; 85025 ×2; 85610; 81001; 87636; 71046; 72125; 70450; G0378 ×2

== ENCOUNTER 2023-08-07 10:09 | Emergency (ER) | payer MEDICARE ==
[2023-08-07 11:08] VITALS: RESP 18
--- NOTE | 2023-08-07 13:43 | ED ---
Headache HPI - General Chief Complaint: Headache Stated Complaint: dizzy, blurred vision, unstable, pain in neck Time Seen by Provider: 08/07/23 13:03 Source: patient, RN notes reviewed Mode of arrival: wheelchair Limitations: no limitations - History of Present Illness Initial Comments: 73-year-old female presents with complaints of left-sided headache some ear problems she's had for about a year she feels like his Conner was in her ears she states she has left-sided neck pain and radiates up into her scalp she believes she may have arthritis from using her cell phone to much. She also is had 2 weeks of blurry vision. Getting back to the neck pain she states is symmetrical and released 9 months. She does states she had an ENT doctor to water to get an MRI she has failed to do this however. No fevers chills nausea vomiting sweats upon arrival she was noted have a blood pressure 143/113 she states is normally normal. No focal loss of upper or lower extremity strength or sensation. MD Complaint: headache - Related Data Home Medications Medication Instructions Recorded Confirmed No Known Home Medications 08/07/23 08/07/23 Allergies Allergy/AdvReac Type Severity Reaction Status Date / Time No Known Allergies Allergy Verified 08/07/23 13:51 Review of Systems ROS Statement: Those systems with pertinent positive or pertinent negative responses have been documented in the HPI. ROS Other: All systems not noted in ROS Statement are negative. Past Medical History Past Medical History: No Reported History History of Any Multi-Drug Resistant Organisms: None Reported Past Surgical History: Appendectomy, Bladder Surgery, Section, Hysterectomy Past Anesthesia/Blood Transfusion Reactions: No Reported Reaction Past Psychological History: Anxiety Past Alcohol Use History: None Reported Past Drug Use History: None Reported General Exam - General Exam Comments Initial Comments: This is a well-developed well-nourished awake alert oriented 4 female Limitations: no limitations General appearance: alert, in no apparent distress Head exam: Present: atraumatic, normocephalic, normal inspection Eye exam: Present: normal appearance, PERRL, EOMI. Absent: scleral icterus, conjunctival injection, periorbital swelling ENT exam: Present: normal exam, mucous membranes moist Neck exam: Present: normal inspection, tenderness (Tennis palpation of the left paraspinous musculature no definitive midline tenderness no step-off or crepitation), full ROM, other (No stridor Tere or bruits). Absent: meningismus, lymphadenopathy Respiratory exam: Present: normal lung sounds bilaterally. Absent: respiratory distress, wheezes, rales, rhonchi, stridor Cardiovascular Exam: Present: regular rate, normal rhythm, normal heart sounds. Absent: systolic murmur, diastolic murmur, rubs, gallop, clicks GI/Abdominal exam: Present: soft, normal bowel sounds. Absent: distended, tenderness, guarding, rebound, rigid Extremities exam: Present: normal inspection, full ROM, normal capillary refill. Absent: tenderness, pedal edema, joint swelling, calf tenderness Back exam: Present: normal inspection Neurological exam: Present: alert, oriented X3, CN II-XII intact Psychiatric exam: Present: normal affect, normal mood Skin exam: Present: warm, dry, intact, normal color. Absent: rash Course Vital Signs 08/07/23 08/07/23 10:40 14:00 Temperature 98.1 F 98.2 F Pulse Rate 92 67 Respiratory 18 18 Rate Blood Pressure 168/85 167/97 O2 Sat by Pulse 99 100 Oximetry Medical Decision Making - Medical Decision Making I did discuss findings with the patient she does show concern for the pressure in her ears and when she moves her neck the patient states she does not have pain though she did demonstrate discomfort when I palpated the left paraspinous musculature at the lower neck region. This is a component of that. I did discuss measures such as taking Mucinex and/or ibuprofen versus acetaminophen for the discomfort. She also states she was having the visual findings associated with a pressure. I did recommend that she take Mucinex use warm compresses to the neck she does have a follow-up with Dr. Herrera and also has an MRI of the brain scheduled for the of this month. She states she has had Mucinex as well as Antivert at home for some dizziness she was also expressing. She is encouraged to use this.Was pt. sent in by a medical professional or institution (, PA, RN DELIVERY, urgent care, hospital, or senior care...) When possible be specific @ -[No] Did you speak to anyone other than the patient for history (EMS, parent, family, police, friend...)? What history was obtained from this source @ -[No] Did you review nursing and triage notes (agree or disagree)? Why? @ -[I reviewed and agree with nursing and triage notes] Were old charts reviewed (outside hosp., previous admission, EMS record, old EKG, old radiological studies, urgent care reports/EKG's, senior care records)? Report findings @ -[No old charts were reviewed] Differential Diagnosis (chest pain, altered mental status, abdominal pain women, abdominal pain men, vaginal bleeding, weakness, fever, dyspnea, syncope, headache, dizziness, GI bleed, back pain, seizure, CVA, palpatations, mental health, musculoskeletal)? @ -[Initial differential diagnosis sinusitis with otitis media cervical joint disease] EKG interpreted by me (3pts min.). @ -[As above EKG interpreted by me normal sinus rhythm a 63 150 to QRS duration 87 QT since QTC 392/400 this is a normal-appearing EKG] X-rays interpreted by me (1pt min.). @ -[None done] CT interpreted by me (1pt min.). @ -[CT the brain C-spine interpreted by me brain CT negative for acute process and a CT of the cervical spine shows evidence of degenerative disease especially at C6-C7 no evidence of any acute processes however.] U/S interpreted by me (1pt. min.). @ -[None done] What testing was considered but not performed or refused? (CT, X-rays, U/S, labs)? Why? @ -[None] What meds were considered but not given or refused? Why? @ -[The patient was offered Mucinex in the emergency department states she could not wait she also has this at home.] Did you discuss the management of the patient with other professionals (professionals i.e. , PA, RN DELIVERY, lab, RT, psych nurse, social security assessor, employee benefits director, teacher, armoured corps officer, supportive employment case manager)? Give summary @ -[No] Was smoking cessation discussed for >3mins.? @ -[No] Was critical care preformed (if so, how long)? @ -[No] Were there social determinants of health that impacted care today? How? (Homelessness, low income, unemployed, alcoholism, drug addiction, transportation, low edu. Level, literacy, decrease access to med. care, fdc, rehab)? @ -[No] Was there de-escalation of care discussed even if they declined (Discuss DNR or withdrawal of care, Hospice)? DNR status @ -[No] What co-morbidities impacted this encounter? (DM, HTN, Smoking, COPD, CAD, Cancer, CVA, ARF, Chemo, Hep., AIDS, mental health diagnosis, sleep apnea, m orbid obesity)? @ -[None] Was patient admitted / discharged? Hospital course, mention meds given and route, prescriptions, significant lab abnormalities, going to OR and other pertinent info. @ -[hospital course he was discharged with outpatient follow-up with her doctor also we did recommend the use of Mucinex and the Antivert that she has at home.] Undiagnosed new problem with uncertain prognosis? @ -[No] Drug Therapy requiring intensive monitoring for toxicity (Heparin, Nitro, Insulin, Cardizem)? @ -[No] Were any procedures done? @ -[No] Diagnosis/symptom? @ -[Serous otitis media, degenerative cervical disc disease.] Acute, or Chronic, or Acute on Chronic? @ -[No acute on chronic] Uncomplicated (without systemic symptoms) or Complicated (systemic symptoms)? @ -[default] Side effects of treatment? @ -[No] Exacerbation, Progression, or Severe Exacerbation? @ -[No] Poses a threat to life or bodily function? How? (Chest pain, [place], [place], pneumonia, PE, COPD, DKA, ARF, appy, cholecystitis, CVA, Diverticulitis, Homicidal, Suicidal, threat to staff... and all critical care pts) @ -[No] - Lab Data Result diagrams: 08/07/23 13:40 08/07/23 13:40 Lab Results 08/07/23 08/07/23 08/07/23 Range/Units 13:40 13:40 13:40 WBC 10.4 (3.8-10.6) k/uL RBC 5.23 (3.80-5.40) m/uL Hgb 16.3 H (11.4-16.0) gm/dL Hct 50.4 H (34.0-46.0) % MCV 96.5 (80.0-100.0) fL MCH 31.2 (25.0-35.0) pg MCHC 32.3 (31.0-37.0) g/dL RDW 12.5 (11.5-15.5) % Plt Count 326 (150-450) k/uL MPV 8.4 Neutrophils % 76 % Lymphocytes % 19 % Monocytes % 3 % Eosinophils % 0 % Basophils % 0 % Neutrophils # 7.9 H (1.3-7.7) k/uL Lymphocytes # 2.0 (1.0-4.8) k/uL Monocytes # 0.4 (0-1.0) k/uL Eosinophils # 0.1 (0-0.7) k/uL Basophils # 0.0 (0-0.2) k/uL Sodium 138 (137-145) mmol/L Potassium 4.3 (3.5-5.1) mmol/L Chloride 103 (98-107) mmol/L Carbon Dioxide 20 L (22-30) mmol/L Anion Gap 15 mmol/L BUN 16 (7-17) mg/dL Creatinine 0.49 L (0.52-1.04) mg/dL Est GFR (CKD-EPI)AfAm >90 (>60 ml/min/1.73 sqM) Est GFR (CKD-EPI)NonAf >90 (>60 ml/min/1.73 sqM) Glucose 110 H (74-99) mg/dL Plasma Lactic Acid [place] (0.7-2.0) mmol/L Calcium 10.1 (8.4-10.2) mg/dL Magnesium 2.2 (1.6-2.3) mg/dL Total Bilirubin 0.6 (0.2-1.3) mg/dL AST 33 (14-36) U/L ALT 21 (4-34) U/L Alkaline Phosphatase 104 (38-126) U/L Creatine Kinase 26 L (30-135) U/L Troponin I (0.000-0.034) ng/mL Total Protein 8.9 H (6.3-8.2) g/dL Albumin 5.1 H (3.5-5.0) g/dL Lipase 105 (23-300) U/L Urine Color Colorless Urine Appearance Clear (Clear) Urine pH 5.0 (5.0-8.0) Ur Specific [place] 1.004 (1.001-1.035) Urine Protein Negative (Negative) Urine Glucose (UA) Negative (Negative) Urine Ketones Negative (Negative) Urine Blood Negative (Negative) Urine Nitrite Negative (Negative) Urine Bilirubin Negative (Negative) Urine Urobilinogen <2.0 (<2.0) mg/dL Ur Leukocyte Esterase Small H (Negative) Urine WBC 9 H (0-5) /hpf Ur Squamous Epith Cells <1 (0-4) /hpf 08/07/23 08/07/23 Range/Units 13:40 13:40 WBC (3.8-10.6) k/uL RBC (3.80-5.40) m/uL Hgb (11.4-16.0) gm/dL Hct (34.0-46.0) % MCV (80.0-100.0) fL MCH (25.0-35.0) pg MCHC (31.0-37.0) g/dL RDW (11.5-15.5) % Plt Count (150-450) k/uL MPV Neutrophils % % Lymphocytes % % Monocytes % % Eosinophils % % Basophils % % Neutrophils # (1.3-7.7) k/uL Lymphocytes # (1.0-4.8) k/uL Monocytes # (0-1.0) k/uL Eosinophils # (0-0.7) k/uL Basophils # (0-0.2) k/uL Sodium (137-145) mmol/L Potassium (3.5-5.1) mmol/L Chloride (98-107) mmol/L Carbon Dioxide (22-30) mmol/L Anion Gap mmol/L BUN (7-17) mg/dL Creatinine (0.52-1.04) mg/dL Est GFR (CKD-EPI)AfAm (>60 ml/min/1.73 sqM) Est GFR (CKD-EPI)NonAf (>60 ml/min/1.73 sqM) Glucose (74-99) mg/dL Plasma Lactic Acid [place] 1.0 (0.7-2.0) mmol/L Calcium (8.4-10.2) mg/dL Magnesium (1.6-2.3) mg/dL Total Bilirubin (0.2-1.3) mg/dL AST (14-36) U/L ALT (4-34) U/L Alkaline Phosphatase (38-126) U/L Creatine Kinase (30-135) U/L Troponin I <0.012 (0.000-0.034) ng/mL Total Protein (6.3-8.2) g/dL Albumin (3.5-5.0) g/dL Lipase (23-300) U/L Urine Color Urine Appearance (Clear) Urine pH (5.0-8.0) Ur Specific [place] (1.001-1.035) Urine Protein (Negative) Urine Glucose (UA) (Negative) Urine Ketones (Negative) Urine Blood (Negative) Urine Nitrite (Negative) Urine Bilirubin (Negative) Urine Urobilinogen (<2.0) mg/dL Ur Leukocyte Esterase (Negative) Urine WBC (0-5) /hpf Ur Squamous Epith Cells (0-4) /hpf - EKG Data -: EKG Interpreted by Me EKG shows normal: sinus rhythm EKG Comments: Normal sinus rhythm a 63. Interval 150 to QRS duration 8070 QT since QTC 392/400 this is interpreted by me is a normal-appearing EKG. - Radiology Data Interpreted by me: Imaging interpreted by me CT brain appears be unremarkable CT cervical spine shows degenerative changes at the C6-C7 region. Disposition Clinical Impression: Serous otitis media, Cervical disc disease Disposition: HOME SELF-CARE Condition: Good Instructions (If sedation given, give patient instructions): Degenerative Disc Disease (ED), Fluid In The Ear (Serous Otitis Media) (ED) Is patient prescribed a controlled substance at d/c from ED?: No Referrals: Sedrick Herrera DO [Primary Care Provider] - 1-2 days Decision Date: 08/07/23 Decision Time: 16:00
[2023-08-07 14:01] LABS: Basophils % (A) 0 %; Eosinophils # (A) 0.1 k/uL (0-0.7); Eosinophils % (A) 0 %; HCT 50.4 % (34.0-46.0); HGB 16.3 gm/dL (11.4-16.0); Lymphocytes % (A) 19 %; MCH 31.2 pg (25.0-35.0); MCHC 32.3 g/dL (31.0-37.0); MCV 96.5 fL (80.0-100.0); Mean Platelet Volume 8.4; Monocytes # (A) 0.4 k/uL (0-1.0); Monocytes % (A) 3 %; Neutrophils # (A) 7.9 k/uL (1.3-7.7); Neutrophils % (A) 76 %; Platelet Count 326 k/uL (150-450); RBC 5.23 m/uL (3.80-5.40); RDW 12.5 % (11.5-15.5); WBC 10.4 k/uL (3.8-10.6)
[2023-08-07 14:19] LABS: ALT 21 U/L (4-34); AST 33 U/L (14-36); African American GFR (CKD) >90 (>60 ml/min/1.73 sqM); Albumin 5.1 g/dL (3.5-5.0); Alkaline Phosphatase 104 U/L (38-126); Anion Gap 15 mmol/L; Blood Urea Nitrogen 16 mg/dL (7-17); Calcium 10.1 mg/dL (8.4-10.2); Carbon Dioxide 20 mmol/L (22-30); Chloride 103 mmol/L (98-107); Creatine Kinase 26 U/L (30-135); Glucose 110 mg/dL (74-99); Lipase 105 U/L (23-300); Magnesium 2.2 mg/dL (1.6-2.3); Non-African American GFR(CKD) >90 (>60 ml/min/1.73 sqM); Potassium 4.3 mmol/L (3.5-5.1); Sodium 138 mmol/L (137-145); Total Bilirubin 0.6 mg/dL (0.2-1.3); Total Protein 8.9 g/dL (6.3-8.2)
[2023-08-07 14:29] LABS: Appearance,Urine Clear (Clear); Bilirubin,Urine Negative (Negative); Blood,Urine Negative (Negative); Color,Urine Colorless; Glucose,Urine (UA) Negative (Negative); Ketones,Urine Negative (Negative); Leukocyte Esterase,Urine Small (Negative); Nitrite,Urine Negative (Negative); Protein,Urine Negative (Negative); Specific Gravity,Urine 1.004 (1.001-1.035); Squamous Epithelial Cell,Urine <1 /hpf (0-4); Urobilinogen,Urine <2.0 mg/dL (<2.0); WBC,Urine 9 /hpf (0-5)
--- NOTE | 2023-08-07 14:47 | CT ---
EXAMINATION TYPE: CT brain anjali wo con DATE OF EXAM: 08/07/2023 COMPARISON: 12/15/2022 HISTORY: bilateral visual changes over [address] DLP: 1177.7 mGycm, Automated exposure control for dose reduction was used. CONTRAST: Patient injected with 0 mL of Isovue 300. CT of the brain is performed utilizing 3 mm thick sections through the posterior fossa and 3 mm thick sections through the remaining calvarium. Study is performed within 24 hours of arrival to the hospital. No abnormal hyperdensity is present to suggest an acute intracranial hemorrhage. No mass lesion is evident. No acute infarcts are evident. Ventricles and sulci are appropriate for the patient age. Paranasal sinuses and mastoid air cells within the [id number] are clear. IMPRESSIONS: 1. No acute intracranial process. Follow-up MRI can be performed as clinically indicated CT cervical spine. COMPARISON: None CT of the cervical spine is performed in the axial plane at 2 mm thick sections. Reconstructed image s in the coronal, and sagittal plane are reviewed on the computer. No acute fractures are evident. Vertebral body alignment is normal. There is diffuse loss of disc height throughout the cervical spine. This appears greatest at C6-7. Vertebral body heights are preserved. No spinal canal stenosis is evident. No neural foraminal stenosis is evident. IMPRESSION: 1. Degenerative disc changes throughout the cervical spine, greatest C6-7.
[2023-08-07 16:28] VITALS: BP 167/95; PULSE 78; TEMP 97.8
== END 2023-08-07 16:17 | disposition home or self-care (01) ==
LOC: EC 10:09
DX: H65.90 Unspecified nonsuppurative otitis media, unspecified ear (principal); M50.90 Cervical disc disorder, unspecified, unspecified cervical region; Z86.59 Personal history of other mental and behavioral disorders
CPT/HCPCS: 36415; 70450; 72125; 80053; 81001; 82550; 83605; 83690; 83735; 84484; 85025; 93005; 99284

== ENCOUNTER 2024-05-23 11:08 | Observation (INO) | payer MEDICARE ==
[2024-05-23] MEDS: KETOROLAC 15 MG/ML 1 ML VIAL IM STA (12:02)
--- NOTE | 2024-05-23 13:04 | XR ---
EXAMINATION TYPE: XR ankle complete 3 views bilateral, XR foot complete 3 views bilateral DATE OF EXAM: 05/23/2024 Comparison: None Clinical History: 73-year-old female with pain after fall Findings: Right: Ankle mortise is congruent with preservation of the distal tibiofibular overlap. Talar dome is intact . Mild anterior soft tissue swelling. Subtalar joint align. Small plantar heel spur. Smooth delineati on to the Achilles tendon. There is dorsal metallic clips. Irregularity along the dorsal navicular on the lateral view of the foot. Otherwise, no acute fracture , subluxation, dislocation. Left: Nondisplaced oblique fracture distal fibular shaft. Os trigonum. Small plantar heel spur. Prominent a nterior and lateral soft tissue swelling. Talar dome is intact. Subtalar joint is aligned. Small deli neation to the Achilles tendon. Foot without any additional acute osseous abnormality seen. Impression: (Ankle and foot): 1. Right: Anterior ankle as well as dorsal mid to hindfoot soft tissue swelling. There is some irregu larity along the dorsal navicular that could represent a tiny nondisplaced chip fracture or capsular avulsion fracture. Correlate for any point tenderness here. 2. Left: Nondisplaced oblique fracture distal fibular shaft with lateral and anterior soft tissue swe lling. Consider a stress view of the ankle to assess for any abnormal medial clear space widening. No additional acute osseous adenopathy seen.
--- NOTE | 2024-05-23 15:19 | ED ---
Fall HPI - General Chief Complaint: Fall Stated Complaint: Fall Time Seen by Provider: 05/23/24 15:16 Source: patient, RN notes reviewed Mode of arrival: wheelchair - History of Present Illness Initial Comments: 73-year-old female presented to the ER with a chief complaint of a fall. Patient states yesterday she tripped on a rug and twisted both of her ankles. Since she has been complaining of bilateral ankle pain, swelling and bruising. Patient has not taken anything for pain at this time. She denies any head injury or loss of consciousness. Denies dizziness, lightheadedness, chest pain or shortness of breath prior to fall. Denies any paresthesias. Patient states that has been extremely painful to walk since incident. - Related Data Home Medications Medication Instructions Recorded Confirmed No Known Home Medications 08/07/23 08/07/23 Allergies Allergy/AdvReac Type Severity Reaction Status Date / Time No Known Allergies Allergy Verified 08/07/23 13:51 Review of Systems ROS Statement: Those systems with pertinent positive or pertinent negative responses have been documented in the HPI. ROS Other: All systems not noted in ROS Statement are negative. Past Medical History Past Medical History: No Reported History History of Any Multi-Drug Resistant Organisms: None Reported Past Surgical History: Appendectomy, Bladder Surgery, Section, Hysterectomy Past Anesthesia/Blood Transfusion Reactions: No Reported Reaction Past Psychological History: Anxiety Past Alcohol Use History: None Reported Past Drug Use History: None Reported General Exam Limitations: no limitations General appearance: alert, in no apparent distress Respiratory exam: Present: normal lung sounds bilaterally. Absent: respiratory distress, wheezes, rales, rhonchi, stridor Cardiovascular Exam: Present: regular rate, normal rhythm, normal heart sounds. Absent: systolic murmur, diastolic murmur, rubs, gallop, clicks Extremities exam: Present: tenderness (Posterior ankle left. Negative Bui test bilaterally.), other (Right lateral malleolus edematous with significant contusion to malleolus and anterior aspect of foot. 2+ right dorsalis pedis pulse. Patient has full active range of motion. Bilateral lower extremity strength is equal. Left lateral malleolus edematous with minimal bruising. 2+ left DP pulse) Neurological exam: Present: alert, oriented X3, CN II-XII intact Skin exam: Present: warm, dry, intact, normal color. Absent: rash Course Vital Signs 05/23/24 11:13 Temperature 97.8 F Pulse Rate 75 Respiratory 16 Rate Blood Pressure 155/84 O2 Sat by Pulse 99 Oximetry - Reevaluation(s) Reevaluation #1: 05/23/24 15:34 Case discussed with on-call orthopedics, Puma, who advised on admission to medicine with orthopedics on consult. Reevaluation #2: 05/23/24 16:36 [facility]. Procedures - Orthopedic Splinting/Casting Injury #1 Side: left Lower Extremity Injury Location: ankle Lower Extremity Immobilizer: posterior splint Injury #2 Side: right Lower Extremity Injury Location: foot Lower Extremity Immobilizer: post-op shoe Medical Decision Making - Medical Decision Making Was pt. sent in by a medical professional or institution (, PA, SOLAR ENERGY SYSTEMS ENGINEER, urgent care, hospital, or snf...) When possible be specific @ -No Did you speak to anyone other than the patient for history (EMS, parent, family, police, friend...)? What history was obtained from this source @ -No Did you review nursing and triage notes (agree or disagree)? Why? @ -I reviewed and agree with nursing and triage notes Were old charts reviewed (outside hosp., previous admission, EMS record, old EKG, old radiological studies, urgent care reports/EKG's, snf records)? Report findings @ -No old charts were reviewed Differential Diagnosis (chest pain, altered mental status, abdominal pain women, abdominal pain men, vaginal bleeding, weakness, fever, dyspnea, syncope, headache, dizziness, GI bleed, back pain, seizure, CVA, palpatations, mental health, musculoskeletal)? @ -Differential Musculoskeletal: Muscular strain, contusion, ligament sprain, fracture, arthritis, septic arthritis, bursitis, cellulitis, muscle spasm, nerve compression, DVT, arterial occlusion, herpes zoster, electrolyte abnormality, tumor.... This is not meant to be in all inclusive list EKG interpreted by me (3pts min.). @ -None done X-rays interpreted by me (1pt min.). @ -Bilateral ankle x-ray showing a left distal fibular shaft fracture with no displacement. Right foot is showing a navicular avulsion fracture. CT interpreted by me (1pt min.). @ -None done U/S interpreted by me (1pt. min.). @ -None done What testing was considered but not performed or refused? (CT, X-rays, U/S, labs)? Why? @ -None What meds were considered but not given or refused? Why? @ -None Did you discuss the management of the patient with other professionals (professionals i.e. , PA, SOLAR ENERGY SYSTEMS ENGINEER, lab, RT, psych nurse, social services assistant, manufacturing technician, teacher, training and development officer, welfare case worker)? Give summary @ -Yes, case discussed with on-call orthopedicPuma mata, for admission. He advised on admission to medicine with orthopedics on consult. [facility]. Was smoking cessation discussed for >3mins.? @ -No Was critical care preformed (if so, how long)? @ -No Were there social determinants of health that impacted care today? How? (Homelessness, low income, unemployed, alcoholism, drug addiction, transportation, low edu. Level, literacy, decrease access to med. care, snf, rehab)? @ -No Was there de-escalation of care discussed even if they declined (Discuss DNR or withdrawal of care, Hospice)? DNR status @ -No What co-morbidities impacted this encounter? (DM, HTN, Smoking, COPD, CAD, Cancer, CVA, ARF, Chemo, Hep., AIDS, mental health diagnosis, sleep apnea, morbid obesity)? @ -None Was patient admitted / discharged? Hospital course, mention meds given and route, prescriptions, significant lab abnormalities, going to OR and other pertinent info. @ -Admitted. 73-year-old female presented to ER with chief complaint of a fall. History and physical exam completed. Vitals within normal limits. Bilateral lower extremities neurovascular intact. There is significant edema to right lateral malleolus with overlying contusion. There is also edema to left lateral malleolus with edema. Pain to palpation of posterior left ankle. X- rays obtained showing a left distal fibular shaft fracture and a right navicular avulsion fracture. Patient given IM toradol for pain control in the ER. Splints and orthopedic shoe placed, see note above. Admission considered as patient was having difficulty ambulating in the emergency department with splint and orthopedic shoe and is a fall risk at home. Case discussed with rehabilitation supervisor orthopedicsPuma, who advised on admission to medicine for possible rehab placement. [facility]. Patient agreeable for admission. Case discussed with ED attending, Dr. Bonner. Undiagnosed new problem with uncertain prognosis? @ -No Drug Therapy requiring intensive monitoring for toxicity (Heparin, Nitro, Insulin, Cardizem)? @ -No Were any procedures done? @ -No Diagnosis/symptom? @ -Left distal fibular fracture/right navicular fracture Acute, or Chronic, or Acute on Chronic? @ -Acute Uncomplicated (without systemic symptoms) or Complicated (systemic symptoms)? @ -Complicated Side effects of treatment? @ -No Exacerbation, Progression, or Severe Exacerbation? @ -No Poses a threat to life or bodily function? How? (Chest pain, [place], [place], pneumonia, PE, COPD, DKA, ARF, appy, cholecystitis, CVA, Diverticulitis, Homicidal, Suicidal, threat to staff... and all critical care pts) @ -No - Radiology Data Radiology results: report reviewed, image reviewed Disposition Clinical Impression: Fracture of distal fibula, Avulsion fracture of navicular bone of foot Disposition: ADMITTED IP TO THIS [facility] Condition: Stable Referrals: Sedrick Herrera DO [Primary Care Provider] - 1-2 days Time of Disposition: 16:41
[2024-05-23] MEDS ORDERED: NALOXONE 0.4 MG/ML 1 ML VIAL IV PRN (16:30)
[2024-05-23] MEDS ORDERED: ONDANSETRON 4 MG/2 ML VIAL IM PRN (16:30)
[2024-05-23] MEDS ORDERED: ACETAMINOPHEN TAB 325 MG TAB PO PRN (16:30)
[2024-05-24] MEDS: IBUPROFEN 400 MG TAB PO PRN (06:11)
[2024-05-24] MEDS: ALPRAZolam 0.5 MG TAB PO STA (07:32)
--- NOTE | 2024-05-24 09:35 | P.CNOR ---
History of Present Illness - [facility] Consult date: 05/24/24 Requesting physician: Florencia Almanza Consult reason: other (fibular and navicular fx) History of present illness: Patient is a 73-year-old female who presented to the ER yesterday status post fall at home. Orthopedics was consulted due to left distal fibula fracture and avulsion fracture of navicular bone on the right foot. Patient was seen at bedside this morning lying semirecumbent position with splint present to the left lower extremity. Patient states yesterday morning she was at home when she went from seated position in her chair and went to stand up and fell right in front of her. Patient does not recall hitting her head or losing consciousness. Patient denies feeling dizzy or her legs giving out before her fall. Patient states that she is having mostly left ankle pain with also some pain over the right foot. Patient denies radiation of pain. Patient says she does live at home alone and normally ambulates independently. Patient is concerned she will not be able to go home alone. Patient denies chest pain, fever, shortness of breath, nausea, vomiting, change in vision, loss of bowel/bladder control. Past Medical History Past Medical History: Hyperlipidemia History of Any Multi-Drug Resistant Organisms: None Reported Past Surgical History: Appendectomy, Bladder Surgery, Section, Hysterectomy Past Anesthesia/Blood Transfusion Reactions: No Reported Reaction Past Psychological History: Anxiety Smoking Status: Never smoker Past Alcohol Use History: None Reported Past Drug Use History: None Reported Medications and Allergies Home Medications Medication Instructions Recorded Confirmed Type Unknown Cholesterol Medication 1 tab PO DAILY 05/23/24 05/23/24 History Allergies Allergy/AdvReac Type Severity Reaction Status Date / Time No Known Allergies Allergy Verified 05/23/24 17:07 Physical Examination Inspection: Splint present to the left lower extremity over the ankle. Moderate swelling present. ecchymosis present over the the right foot. Positive for some mild swelling. Negative for any open fractures, open wounds. Sensation: Equal, symmetric, bilateral intact throughout the upper and lower extremities on exam Palpation: Moderate tenderness palpation diffusely throughout the left ankle especially on the lateral malleolus. Positive for tenderness to palpation over the right foot. Nontender to palpation throughout rest of exam. Range of motion: Full range of motion throughout bilateral knees on exam. Range of motion left ankle secondary to splint injury. Some limited range of motion in the right ankle and dorsi/plantarflexion secondary to swelling and pain. Patient is able to wiggle digits in bilateral lower extremities. Patient is able to flex and extend and rotate both hips without pain Motor: 4/5 in bilateral hips in flexion extension and bilateral knees in flexion extension. Left ankle motor exam not performed due to injury and splint. 4-/5 in resisted right ankle dorsi/plantarflexion. 4/5 EHL/FHL bilaterally Neurovascular: DP pulses palpable. Cap refill under 3 seconds in digits of lower extremities bilaterally. Special test: Negative Homans bilaterally. Negative logroll maneuver bilaterally Results - Diagnostic results Ankle/Foot x-ray: report reviewed, image reviewed (X-ray of the left ankle is positive for nondisplaced distal fibula fracture. Talar dome appears to be intact. Negative for any dislocations. Right ankle/foot x-ray positive for avulsion fracture of the navicular bone. Talar dome appears to be intact.) Assessment and Plan Assessment: 1. Left distal fibula fracture; avulsion fracture of the right navicular bone Plan: 1. Left distal fibula fracture; avulsion fracture of the right navicular bone - X-ray of the left ankle is positive for nondisplaced distal fibula fracture. Talar dome appears to be intact. Negative for any dislocations. Right ankle/foot x-ray positive for avulsion fracture of the navicular bone. Talar dome appears to be intact. I did discuss the imaging/findings of exam with my attending, Dr. Quinonez. No emergent orthopedic surgical intervention at this time. At this time we are recommending conservative measures with the use of ice and pain medication as needed. Patient to be nonweightbearing to the left lower extremity. Patient may weight-bear as tolerated to the right lower extremity with the use of walker. Appreciate PT/OT recommendations. Case management working on potential rehab placement. We do recommend patient to follow-up in the outpatient setting with Dr. Quinonez in 1 week. We will continue to be available as needed to see patient. 2. Appreciate medical management 3. Pain management -Tylenol 4. DVT prophylaxis -mechanical 5. GI prophylaxis - senna 6. PT/OT -nonweightbearing left lower extremity. Weightbearing as tolerated right lower extremity; use walker 7. Encourage incentive spirometer use 8. Appreciate consult Time with Patient: Less than 30
[2024-05-24] MEDS: IBUPROFEN 400 MG TAB ONE (11:49)
[2024-05-24] MEDS: ALPRAZolam 0.5 MG TAB ONE (11:49)
--- NOTE | 2024-05-24 12:17 | P.HPIM ---
History of Present Illness H&P Date: 05/24/24 Chief Complaint: Distal fib. fx., avulsion fx.of navicular bone right foot s/p fall. This is a 73-year-old female past medical history significant for anxiety, high cholesterol and multiple other medical issues, presented to the ER status post fall sustaining fracture of left distal fibula, avulsion fracture of right navicular bone as reported per chest x-ray. Patient reports upon standing up, tripped over a rug, fell. Denies syncope, incontinence of urine or stool ,den ies head trauma. Denies chest pain, palpitations or shortness of breath. Denies lightheadedness or dizziness prior to fall. post fall, painful to walk. Review of Systems ROS Statement: Those systems with pertinent positive or pertinent negative responses have been documented in the HPI. ROS Other: All systems not noted in ROS Statement are negative. Past Medical History Past Medical History: Hyperlipidemia History of Any Multi-Drug Resistant Organisms: None Reported Past Surgical History: Appendectomy, Bladder Surgery, Section, Hysterectomy Past Anesthesia/Blood Transfusion Reactions: No Reported Reaction Past Psychological History: Anxiety Smoking Status: Never smoker Past Alcohol Use History: None Reported Past Drug Use History: None Reported Medications and Allergies Home Medications Medication Instructions Recorded Confirmed Type Atorvastatin [Lipitor] 20 mg PO DAILY 05/24/24 05/24/24 History Allergies Allergy/AdvReac Type Severity Reaction Status Date / Time No Known Allergies Allergy Verified 05/23/24 17:07 Physical Exam Vitals: Vital Signs Temp Pulse Resp BP Pulse Ox 05/24/24 08:00 97.8 F 70 18 106/70 97 05/24/24 02:00 98.1 F 72 122/73 99 05/23/24 20:00 97.9 F 71 146/83 99 Intake and Output 05/23/24 05/24/24 05/24/24 22:59 06:59 14:59 Other: # Voids 1 Weight 65.771 kg PHYSICAL EXAM: VITAL SIGNS: [As above] GENERAL: Elderly female sitting up in bed, alert and oriented x 3, no acute distress. Mild anxiety. HEENT: Normocephalic, atraumatic, conjunctivae normal. eyes normal. MMM. NECK: Supple, no JVD. No thyroid enlargement. No LNs CARDIOVASCULAR: S1, S2 regular.. No murmur RESPIRATION: Unlabored, equal air entry, breath sounds diminished in the bases. No rhonchi or crackles. No bronchial breathing. ABDOMEN: Soft, nondistended, nontender . No guarding. no masses palpable. No ascites, No hepatosplenomegaly.Bowel sounds heard. LEGS: Bilateral lower extremities elevated on pillows. Splint on left lower extremity. Positive DP pulses. NERVOUS SYSTEM: Cranial N 2-12 grossly normal. No focal deficits. Strength and sensation grossly intact.. Skin: Warm and dry, no rash Thrombosis Risk Factor Assmnt - Choose All That Apply Each Risk Factor Represents 2 Points: Age 61-74 years Thrombosis Risk Factor Assessment Total Risk Factor Score: 2 Thrombosis Risk Factor Assessment Level: Low Risk Assessment and Plan Assessment: fracture of left distal fibula, avulsion fracture of right navicular bone as reported per chest x-ray, status post fall. Anxiety Hyperlipidemia Plan: Continue on current medication regimen, monitoring and symptomatic treatment. Pain management. Evaluation per orthopedics in progress. Patient lives alone, may require subacute rehab at [facility] if nonweightbearing. PT/OT consulted. Case management consulted to assist with discharge planning. The impression and plan of care has been dictated as directed. : I performed a history and examination of this patient, discussed the same with the dictator. I agree with the dictator's note ,documented as a scribe. Any additional findings or plans will be noted.
[2024-05-24] MEDS: PANTOPRAZOLE 40 MG/10 ML VIAL IVP SCH (12:56)
[2024-05-24] MEDS: ATORVASTATIN 20 MG TAB PO SCH (21:47)
[2024-05-25 08:29] VITALS: RESP 17
[2024-05-25 09:13] LABS: Basophils # (A) 0.08 X 10*3/uL (0.00-0.10); Basophils % (A) 0.9 %; Eosinophils # (A) 0.18 X 10*3/uL (0.04-0.35); HCT 42.4 % (37.2-46.3); HGB 13.6 g/dL (12.0-15.0); Lymphocytes # (A) 3.07 X 10*3/uL (0.90-5.00); Lymphocytes % (A) 33.3 %; MCH 30.2 pg (27.0-32.0); MCHC 32.1 g/dL (32.0-37.0); MCV 94.2 FL (80.0-97.0); Mean Platelet Volume 10.8 FL (9.5-12.2); Monocytes # (A) 0.67 X 10*3/uL (0.20-1.00); Monocytes % (A) 7.3 %; NRBC Per 100 WBC 0 X 10*3/uL (0.00-0.01); Neutrophils # (A) 5.15 X 10*3/uL (1.80-7.70); Neutrophils % (A) 55.8 %; Platelet Count 289 X 10*3/uL (140-440); RDW 12.8 % (11.5-14.5); WBC 9.21 X 10*3/uL (4.50-10.00)
[2024-05-25] MEDS: SENNOSIDES 8.6 MG TAB PO SCH (09:21)
--- NOTE | 2024-05-25 09:58 | P.PN ---
Subjective Progress Note Date: 05/25/24 Principal diagnosis: Left distal fibula fracture; avulsion fracture of the right navicular bone Patient was seen at bedside this morning standing up in chair with legs elevated and splint present to the left lower extremity. Patient says her pain is much better today and she is looking forward to going to rehab upon discharge from the hospital. Patient says she did work with therapy yesterday at bedside and did okay. She says she is looking forward to working with them later today. Patient denies any other issues at this time. Objective - Vital Signs Vital signs: Vital Signs Temp 98.2 F 05/25/24 06:58 Pulse 70 05/25/24 06:58 Resp 17 05/25/24 06:58 BP 133/84 05/25/24 06:58 Pulse Ox 98 05/25/24 06:58 FiO2 Intake & Output 05/24/24 05/25/24 05/25/24 18:59 06:59 18:59 Other: Voiding Method Bedside Commode Bedside Commode # Voids 3 1 - Exam Inspection: Splint present to the left lower extremity over the ankle. Moderate swelling present. ecchymosis present over the the right foot. Positive for some mild swelling. Negative for any open fractures, open wounds. Sensation: Equal, symmetric, bilateral intact throughout the upper and lower extremities on exam Palpation: Moderate tenderness palpation diffusely throughout the left ankle especially on the lateral malleolus. Positive for tenderness to palpation over the right foot. Nontender to palpation throughout rest of exam. Range of motion: Full range of motion throughout bilateral knees on exam. Range of motion left ankle secondary to splint injury. Some limited range of motion in the right ankle and dorsi/plantarflexion secondary to swelling and pain. Patient is able to wiggle digits in bilateral lower extremities. Patient is able to flex and extend and rotate both hips without pain Motor: 4/5 in bilateral hips in flexion extension and bilateral knees in flexion extension. Left ankle motor exam not performed due to injury and splint. 4-/5 in resisted right ankle dorsi/plantarflexion. 4/5 EHL/FHL bilaterally Neurovascular: DP pulses palpable. Cap refill under 3 seconds in digits of lower extremities bilaterally. Special test: Negative Homans bilaterally. Negative logroll maneuver bilaterally - Labs CBC & Chem 7: 05/25/24 03:53 Labs: Abnormal Lab Results - Last 24 Hours (Table) 05/25/24 Range/Units 03:53 Immature Gran # 0.06 H (0.00-0.04) X 10*3/uL Assessment and Plan Assessment: 1. Left distal fibula fracture; avulsion fracture of the right navicular bone Plan: 1. Left distal fibula fracture; avulsion fracture of the right navicular bone - X-ray of the left ankle is positive for nondisplaced distal fibula fracture. Talar dome appears to be intact. Negative for any dislocations. Right ankle/foot x-ray positive for avulsion fracture of the navicular bone. Talar dome appears to be intact. I did discuss the imaging/findings of exam with my attending, Dr. Quinonez. No emergent orthopedic surgical intervention at this time. At this time we are recommending conservative measures with the use of ice and pain medication as needed. Patient to be nonweightbearing to the left lower extremity. Patient may weight-bear as tolerated to the right lower extremity with the use of walker. Appreciate PT/OT recommendations. Case management working on potential rehab placement. We do recommend patient to follow-up in the outpatient setting with Dr. Quinonez in 1 week. Prescription for cam walker boot placed in chart. Patient is stable from an orthopedic [facility] for discharge. At this time orthopedics is signing off. Please do not hesitate to contact us for any further questions. 2. Appreciate medical management 3. Pain management -Tylenol 4. DVT prophylaxis -mechanical 5. GI prophylaxis - senna 6. PT/OT -nonweightbearing left lower extremity. Weightbearing as tolerated right lower extremity; use walker 7. Encourage incentive spirometer use Time with Patient: Less than 30
[2024-05-25 11:57] LABS: BUN/Creat Ratio 23.29 Ratio (12.00-20.00); Blood Urea Nitrogen 16.3 mg/dL (9.0-27.0); Calcium 9.1 mg/dL (8.7-10.3); Carbon Dioxide 18.9 mmol/L (21.6-31.8); Chloride 105 mmol/L (96-109); Glucose 97 mg/dL (70-110); Sodium 138 mmol/L (135-145)
[2024-05-25 13:46] VITALS: BP 138/84; PULSE 69; TEMP 98.3
--- NOTE | 2024-05-25 14:48 | P.DS ---
Providers Date of admission: 05/23/24 15:40 Expected date of discharge: 05/25/24 Attending physician: Sedrick Herrera Consults: 05/23/24 16:30 Consult Physician Urgent Consulting Provider: Spencer Quinonez Consult Reason/Comments: fibular and navicular fx Do you want consulting provider notified?: Already Contacted Primary care physician: Sedrick Herrera Hospital Course: Final Diagnoses: fracture of left distal fibula, avulsion fracture of right navicular bone as reported per chest x-ray, status post fall. Anxiety Hyperlipidemia Hospital course:This is a 73-year-old female past medical history significant for anxiety, high cholesterol and multiple other medical issues, presented to the ER status post fall sustaining fracture of left distal fibula, avulsion fracture of right navicular bone as reported per chest x-ray. Patient reports upon standing up, tripped over a rug, fell. Denies syncope, incontinence of urine or stool ,denies head trauma. Denies chest pain, palpitations or shortness of breath. Denies lightheadedness or dizziness prior to fall. post fall, painful to walk. Evaluated by orthopedic surgery recommending conservative management with the use of ice and pain medication as needed, nonweightbearing to the left lower extremity. Patient may weight-bear as tolerated to the right lower extremity with the use of walker.follow-up in the outpatient setting with Dr. Quinonez in 1 week. Prescription for cam walker boot placed in chart. Pain improved today, participated with PT. Denies chest pain, palpitations or shortness of breath. Cleared by orthopedic surgery for discharge. Patient will be discharged to [facility] subacute rehab today in a stable condition with guarded prognosis. The impression and plan of care has been dictated as directed. : I performed a history and examination of this patient, discussed the same with the dictator. I agree with the dictator's note ,documented as a scribe. Any additional findings or plans will be noted. Patient Condition at Discharge: Stable Plan - Discharge Summary Discharge Rx Participant: No New Discharge Prescriptions: New Ibuprofen [Motrin] 400 mg PO Q6HR PRN tab PRN Reason: Mild Pain Or Fever > 100.5 Sennosides [Senokot] 8.6 mg PO DAILY tab Acetaminophen Tab [Tylenol] 650 mg PO Q6HR PRN tab PRN Reason: Mild Pain Or Fever > 100.5 Continue Atorvastatin [Lipitor] 20 mg PO DAILY Discharge Medication List Atorvastatin [Lipitor] 20 mg PO DAILY 05/24/24 [History] Acetaminophen Tab [Tylenol] 650 mg PO Q6HR PRN tab 05/25/24 [Rx] Ibuprofen [Motrin] 400 mg PO Q6HR PRN tab 05/25/24 [Rx] Sennosides [Senokot] 8.6 mg PO DAILY tab 05/25/24 [Rx] Follow up Appointment(s)/Referral(s): Sedrick Herrera DO [Primary Care Provider] - 1-2 days Jeanne Whiteside [NON-STAFF] - As Needed Spencer Quinonez MD [STAFF PHYSICIAN] - 1 Week Cammy Hsieh [NON-STAFF] - As Needed (CAM walker boot) Patient Instructions/Handouts: Ankle Fracture (GEN) Activity/Diet/Wound Care/Special Instructions: Jeanne CHAPMAN, BMP in 3 days 1. Nonweightbearing left lower extremity. Use cam walker boot. Okay to take cam walker boot fall sitting in chair resting in bed. 2. Pain medication as needed 3. Keep dressing clean, dry, intact. 4. Follow-up in office in [address] Quinonez. 5. Contact [facility] at [phone] with any questions Discharge Disposition: TRANSFER TO SNF/ECF
== END 2024-05-25 17:34 ==
LOC: EC 11:08 → 4SSUR 15:40
PROVIDERS: ADMIT Family Medicine; ATTEND Family Medicine
DX: S82.832A Other fracture of upper and lower end of left fibula, initial encounter for closed fracture (principal); S92.251A Displaced fracture of navicular [scaphoid] of right foot, initial encounter for closed fracture; W01.0XXA Fall on same level from slipping, tripping and stumbling without subsequent striking against object, initial encounter; F41.9 Anxiety disorder, unspecified; E78.5 Hyperlipidemia, unspecified; Z79.899 Other long term (current) drug therapy
CPT/HCPCS: 80048; 85025; 96372; 96374; 96376; 99285

== ENCOUNTER 2025-03-10 12:15 | Emergency (ER) | payer MEDICARE ==
[2025-03-10 12:27] VITALS: BP 179/87; PULSE 65; RESP 18; TEMP 98.2
--- NOTE | 2025-03-10 13:00 | ED ---
SOB HPI - General Chief Complaint: Shortness of Breath Stated Complaint: SOB Time Seen by Provider: 03/10/25 12:18 Source: patient, RN notes reviewed Mode of arrival: ambulatory Limitations: no limitations - History of Present Illness Initial Comments: This is a 74-year-old female who presents to the emergency department for shortness of breath. States that it started a couple of days ago. She has been on Bactrim for around a week for a UTI and believes that this is what caused her symptoms. She has never had Bactrim before. She has minor coughing associated with this. She is currently denying any chest pain or heaviness specifically, states that it just feels like she has a chest cold. She does report sick contacts with a friend who was diagnosed with pneumonia. Denies any nausea/vomiting. MD Complaint: shortness of breath, cough - Related Data Home Medications Medication Instructions Recorded Confirmed Atorvastatin [Lipitor] 20 mg PO DAILY 05/24/24 05/24/24 Previous Rx's Medication Instructions Recorded Acetaminophen Tab [Tylenol] 650 mg PO Q6HR PRN tab 05/25/24 Ibuprofen [Motrin] 400 mg PO Q6HR PRN tab 05/25/24 Sennosides [Senokot] 8.6 mg PO DAILY tab 05/25/24 Allergies Allergy/AdvReac Type Severity Reaction Status Date / Time sulfamethoxazole Allergy Rash/Hives Verified 03/10/25 12:28 [From Bactrim] trimethoprim [From Bactrim] Allergy Rash/Hives Verified 03/10/25 12:28 Review of Systems ROS Statement: Those systems with pertinent positive or pertinent negative responses have been documented in the HPI. ROS Other: All systems not noted in ROS Statement are negative. Past Medical History Past Medical History: Hyperlipidemia History of Any Multi-Drug Resistant Organisms: None Reported Past Surgical History: Appendectomy, Bladder Surgery, Section, Hysterectomy Past Anesthesia/Blood Transfusion Reactions: No Reported Reaction Past Psychological History: Anxiety Smoking Status: Never smoker Past Alcohol Use History: None Reported Past Drug Use History: None Reported General Exam Limitations: no limitations General appearance: alert, in no apparent distress Head exam: Present: atraumatic, normocephalic, normal inspection Respiratory exam: Present: normal lung sounds bilaterally. Absent: respiratory distress, wheezes, rales, rhonchi, stridor Cardiovascular Exam: Present: regular rate, normal rhythm Neurological exam: Present: alert, oriented X3, CN II-XII intact Psychiatric exam: Present: normal affect, normal mood Skin exam: Present: warm, dry, intact, normal color. Absent: rash Course Vital Signs 03/10/25 12:21 Temperature 98.2 F Pulse Rate 65 Respiratory 18 Rate Blood Pressure 179/87 O2 Sat by Pulse 99 Oximetry Medical Decision Making - Medical Decision Making This is a 74 year old female who presents to the emergency department for shortness of breath. Was pt. sent in by a medical professional or institution? @ -No Did you speak to anyone other than the patient for history? @ -No Did you review nursing and triage notes? @ -I disagree with the aspect of chest pain and pressure, patient currently denying those symptoms. Were old charts reviewed? @ -No Differential Diagnosis? @ -Differential Dyspnea: Coronary syndrome, arrhythmia, tamponade, asthma, COPD, pulmonary embolism, pn eumonia, pneumothorax, pulmonary effusion, anaphylaxis, diabetic ketoacidosis, flailed chest, pulmonary contusion, diaphragmatic rupture, anemia, neuromuscular, this is not meant to be an all-inclusive list. EKG interpreted by me (3pts min.)? @ -EKG interpreted by me demonstrating the following: Sinus rhythm. Ventricular rate 61 bpm, [place] interval 168 ms, QRS duration 88 ms, QTc 398 ms. X-rays interpreted by me (1pt min.)? @ -Chest x-ray obtained, my interpretation identifies no localized consolidations or infiltrates. CT interpreted by me (1pt min.)? @ -Not obtained U/S interpreted by me (1pt. min.)? @ -Not obtained What testing was considered but not performed? (CT, X-rays, U/S, labs)? Why? @ -None What meds were considered but not given? Why? @ -None Did you discuss the management of the patient with other professionals? @ -No Did you reconcile home meds? @ -No Was smoking cessation discussed for >3mins.? @ -No Was critical care preformed (if so, how long)? @ -No Were there social determinants of health that impacted care today? How? (Homelessness, low income, unemployed, alcoholism, drug addiction, transpo rtation, low edu. Level, literacy, decrease access to med. care, [facility], rehab)? @ -No Was there de-escalation of care discussed even if they declined? (Discuss DNR or withdrawal of care, Hospice)? @ -No What co-morbidities impacted this encounter? (DM, HTN, Smoking, COPD, CAD, Cancer, CVA, Hep., AIDS, mental health diagnosis, sleep apnea, morbid obesity)? @ -None Was patient admitted / discharged? @ -Discharged. Lab work unremarkable. COVID, influenza, and RSV testing negative. Urinalysis demonstrates a mild elevation in WBCs, but is not overly suggestive of infection. Chest x-ray reveals no acute process. Patient was relatively asymptomatic in the emergency department. Symptoms could be related to the Bactrim, which she has since finished or something like a viral URI. Patient was very well-appearing in the emergency department and continued to get up and walk around and speak with other patients while exhibiting no signs of distress. Patient stable for discharge home and advised to follow-up with her PCP. Case discussed with ED attending Dr. Joe. Return precautions reviewed in depth, the patient is instructed to return to the emergency department with any new, worsening, or concerning symptoms. Patient verbalized understanding. Undiagnosed new problem with uncertain prognosis? @ -None Drug Therapy requiring intensive monitoring for toxicity (Heparin, Nitro, Insulin, Cardizem)? @ -None Were any procedures done? @ -None Diagnosis/symptom? @ -Shortness of breath Acute, or Chronic, or Acute on Chronic? @ -Acute Uncomplicated (without systemic symptoms) or Complicated (systemic symptoms)? @ -Uncomplicated Side effects of treatment? @ -None Exacerbation, Progression, or Severe Exacerbation] @ -Not applicable Poses a threat to life or bodily function? @ -No - Lab Data Result diagrams: 03/10/25 13:19 03/10/25 13:19 Lab Results 03/10/25 03/10/25 03/10/25 Range/Units 13:19 13:19 13:19 WBC 7.59 (4.50-10.00) 10*3/uL RBC 4.88 (4.10-5.20) 10*6/uL Hgb 15.5 H (12.0-15.0) g/dL Hct 45.7 (37.2-46.3) % MCV 93.6 (80.0-97.0) fL MCH 31.8 (27.0-32.0) pg MCHC 33.9 (32.0-37.0) g/dL Plt Count 287 (140-440) 10*3/uL MPV 10.4 (9.5-12.2) fL Immature Gran % (Auto) 0.4 % Neutrophils % 68.0 % Lymphocytes % 24.8 % Monocytes % 5.3 % Eosinophils % 0.7 % Basophils % 0.8 % Immature Gran # 0.03 (0.00-0.04) 10*3/uL Neutrophils # 5.17 (1.80-7.70) 10*3/uL Lymphocytes # 1.88 (0.90-5.00) 10*3/uL Monocytes # 0.40 (0.20-1.00) 10*3/uL Eosinophils # 0.05 (0.04-0.35) 10*3/uL Basophils # 0.06 (0.00-0.10) 10*3/uL PT 10.6 (10.0-12.5) sec INR 1.0 (<1.2) APTT 24.2 (22.0-30.0) sec Sodium (137-145) mmol/L Potassium (3.5-5.1) mmol/L Chloride (98-107) mmol/L Carbon Dioxide (22-30) mmol/L Anion Gap mmol/L BUN (7-17) mg/dL Creatinine (0.52-1.04) mg/dL Est GFR (CKD-EPI)AfAm (>60 ml/min/1.73 sqM) Est GFR (CKD-EPI)NonAf (>60 ml/min/1.73 sqM) Glucose (74-99) mg/dL Plasma Lactic Acid [place] (0.7-2.0) mmol/L Calcium (8.4-10.2) mg/dL Magnesium (1.6-2.3) mg/dL Total Bilirubin (0.2-1.3) mg/dL AST (14-36) U/L ALT (4-34) U/L Alkaline Phosphatase (38-126) U/L Troponin I (0.000-0.034) ng/mL NT-Pro-B Natriuret Pep pg/mL Total Protein (6.3-8.2) g/dL Albumin (3.5-5.0) g/dL Urine Color Colorless Urine Appearance Clear (Clear) Urine pH 6.0 (5.0-8.0) Ur Specific [place] 1.009 (1.001-1.035) Urine Protein Negative (Negative) Urine Glucose (UA) Negative (Negative) Urine Ketones Trace H (Negative) Urine Blood Negative (Negative) Urine Nitrite Negative (Negative) Urine Bilirubin Negative (Negative) Urine Urobilinogen <2.0 (<2.0) mg/dL Ur Leukocyte Esterase Small H (Negative) Urine RBC 1 (0-5) /hpf Urine WBC 8 H (0-5) /hpf Ur Squamous Epith Cells <1 (0-4) /hpf Urine Mucus Rare H (None) /hpf Influenza Type A (PCR) (Not Detectd) Influenza Type B (PCR) (Not Detectd) RSV (PCR) (Not Detectd) SARS-CoV-2 (PCR) (Not Detectd) 03/10/25 03/10/25 03/10/25 Range/Units 13:19 13:19 13:19 WBC (4.50-10.00) 10*3/uL RBC (4.10-5.20) 10*6/uL Hgb (12.0-15.0) g/dL Hct (37.2-46.3) % MCV (80.0-97.0) fL MCH (27.0-32.0) pg MCHC (32.0-37.0) g/dL Plt Count (140-440) 10*3/uL MPV (9.5-12.2) fL Immature Gran % (Auto) % Neutrophils % % Lymphocytes % % Monocytes % % Eosinophils % % Basophils % % Immature Gran # (0.00-0.04) 10*3/uL Neutrophils # (1.80-7.70) 10*3/uL Lymphocytes # (0.90-5.00) 10*3/uL Monocytes # (0.20-1.00) 10*3/uL Eosinophils # (0.04-0.35) 10*3/uL Basophils # (0.00-0.10) 10*3/uL PT (10.0-12.5) sec INR (<1.2) APTT (22.0-30.0) sec Sodium 138 (137-145) mmol/L Potassium 4.1 (3.5-5.1) mmol/L Chloride 106 (98-107) mmol/L Carbon Dioxide 20 L (22-30) mmol/L Anion Gap 12 mmol/L BUN 16 (7-17) mg/dL Creatinine 0.52 (0.52-1.04) mg/dL Est GFR (CKD-EPI)AfAm >90 (>60 ml/min/1.73 sqM) Est GFR (CKD-EPI)NonAf >90 (>60 ml/min/1.73 sqM) Glucose 115 H (74-99) mg/dL Plasma Lactic Acid [place] 1.1 (0.7-2.0) mmol/L Calcium 9.7 (8.4-10.2) mg/dL Magnesium 2.1 (1.6-2.3) mg/dL Total Bilirubin 0.6 (0.2-1.3) mg/dL AST 25 (14-36) U/L ALT 16 (4-34) U/L Alkaline Phosphatase 88 (38-126) U/L Troponin I <0.012 (0.000-0.034) ng/mL NT-Pro-B Natriuret Pep 76 pg/mL Total Protein 8.3 H (6.3-8.2) g/dL Albumin 4.9 (3.5-5.0) g/dL Urine Color Urine Appearance (Clear) Urine pH (5.0-8.0) Ur Specific [place] (1.001-1.035) Urine Protein (Negative) Urine Glucose (UA) (Negative) Urine Ketones (Negative) Urine Blood (Negative) Urine Nitrite (Negative) Urine Bilirubin (Negative) Urine Urobilinogen (<2.0) mg/dL Ur Leukocyte Esterase (Negative) Urine RBC (0-5) /hpf Urine WBC (0-5) /hpf Ur Squamous Epith Cells (0-4) /hpf Urine Mucus (None) /hpf Influenza Type A (PCR) (Not Detectd) Influenza Type B (PCR) (Not Detectd) RSV (PCR) (Not Detectd) SARS-CoV-2 (PCR) (Not Detectd) 03/10/25 Range/Units 13:19 WBC (4.50-10.00) 10*3/uL RBC (4.10-5.20) 10*6/uL Hgb (12.0-15.0) g/dL Hct (37.2-46.3) % MCV (80.0-97.0) fL MCH (27.0-32.0) pg MCHC (32.0-37.0) g/dL Plt Count (140-440) 10*3/uL MPV (9.5-12.2) fL Immature Gran % (Auto) % Neutrophils % % Lymphocytes % % Monocytes % % Eosinophils % % Basophils % % Immature Gran # (0.00-0.04) 10*3/uL Neutrophils # (1.80-7.70) 10*3/uL Lymphocytes # (0.90-5.00) 10*3/uL Monocytes # (0.20-1.00) 10*3/uL Eosinophils # (0.04-0.35) 10*3/uL Basophils # (0.00-0.10) 10*3/uL PT (10.0-12.5) sec INR (<1.2) APTT (22.0-30.0) sec Sodium (137-145) mmol/L Potassium (3.5-5.1) mmol/L Chloride (98-107) mmol/L Carbon Dioxide (22-30) mmol/L Anion Gap mmol/L BUN (7-17) mg/dL Creatinine (0.52-1.04) mg/dL Est GFR (CKD-EPI)AfAm (>60 ml/min/1.73 sqM) Est GFR (CKD-EPI)NonAf (>60 ml/min/1.73 sqM) Glucose (74-99) mg/dL Plasma Lactic Acid [place] (0.7-2.0) mmol/L Calcium (8.4-10.2) mg/dL Magnesium (1.6-2.3) mg/dL Total Bilirubin (0.2-1.3) mg/dL AST (14-36) U/L ALT (4-34) U/L Alkaline Phosphatase (38-126) U/L Troponin I (0.000-0.034) ng/mL NT-Pro-B Natriuret Pep pg/mL Total Protein (6.3-8.2) g/dL Albumin (3.5-5.0) g/dL Urine Color Urine Appearance (Clear) Urine pH (5.0-8.0) Ur Specific [place] (1.001-1.035) Urine Protein (Negative) Urine Glucose (UA) (Negative) Urine Ketones (Negative) Urine Blood (Negative) Urine Nitrite (Negative) Urine Bilirubin (Negative) Urine Urobilinogen (<2.0) mg/dL Ur Leukocyte Esterase (Negative) Urine RBC (0-5) /hpf Urine WBC (0-5) /hpf Ur Squamous Epith Cells (0-4) /hpf Urine Mucus (None) /hpf Influenza Type A (PCR) Not Detected (Not Detectd) Influenza Type B (PCR) Not Detected (Not Detectd) RSV (PCR) Not Detected (Not Detectd) SARS-CoV-2 (PCR) Not Detected (Not Detectd) - Radiology Data Radiology results: report reviewed, image reviewed Disposition Clinical Impression: Dyspnea Disposition: HOME SELF-CARE Instructions (If sedation given, give patient instructions): Dyspnea (ED), Shortness of Breath (ED) Additional Instructions: Return to the emergency department with any new, worsening, or concerning symptoms. Follow up with your primary care provider in 1-2 days. Is patient prescribed a controlled substance at d/c from ED?: No Referrals: Sedrick Herrera DO [Primary Care Provider] - 1-2 days Time of Disposition: 14:43
[2025-03-10 13:31] LABS: Basophils # (A) 0.06 10*3/uL (0.00-0.10); Basophils % (A) 0.8 %; Eosinophils # (A) 0.05 10*3/uL (0.04-0.35); Eosinophils % (A) 0.7 %; HCT 45.7 % (37.2-46.3); HGB 15.5 g/dL (12.0-15.0); Lymphocytes # (A) 1.88 10*3/uL (0.90-5.00); Lymphocytes % (A) 24.8 %; MCH 31.8 pg (27.0-32.0); MCHC 33.9 g/dL (32.0-37.0); MCV 93.6 fL (80.0-97.0); Mean Platelet Volume 10.4 fL (9.5-12.2); Monocytes % (A) 5.3 %; Neutrophils # (A) 5.17 10*3/uL (1.80-7.70); Platelet Count 287 10*3/uL (140-440); RBC 4.88 10*6/uL (4.10-5.20); RDW 12.9 % (11.5-14.5); WBC 7.59 10*3/uL (4.50-10.00)
[2025-03-10 13:49] LABS: Partial Thromboplastin Time 24.2 sec (22.0-30.0); Prothrombin Time 10.6 sec (10.0-12.5)
[2025-03-10 13:52] LABS: ALT 16 U/L (4-34); AST 25 U/L (14-36); African American GFR (CKD) >90 (>60 ml/min/1.73 sqM); Albumin 4.9 g/dL (3.5-5.0); Alkaline Phosphatase 88 U/L (38-126); Anion Gap 12 mmol/L; Blood Urea Nitrogen 16 mg/dL (7-17); Calcium 9.7 mg/dL (8.4-10.2); Carbon Dioxide 20 mmol/L (22-30); Chloride 106 mmol/L (98-107); Glucose 115 mg/dL (74-99); Magnesium 2.1 mg/dL (1.6-2.3); Non-African American GFR(CKD) >90 (>60 ml/min/1.73 sqM); Potassium 4.1 mmol/L (3.5-5.1); Sodium 138 mmol/L (137-145); Total Bilirubin 0.6 mg/dL (0.2-1.3); Total Protein 8.3 g/dL (6.3-8.2)
[2025-03-10 13:59] LABS: NT-Pro-B-Type Natriuretic Pept 76 pg/mL
[2025-03-10 14:02] LABS: Appearance,Urine Clear (Clear); Bilirubin,Urine Negative (Negative); Blood,Urine Negative (Negative); Color,Urine Colorless; Glucose,Urine (UA) Negative (Negative); Ketones,Urine Trace (Negative); Leukocyte Esterase,Urine Small (Negative); Mucus,Urine Rare /hpf; Nitrite,Urine Negative (Negative); Protein,Urine Negative (Negative); RBC,Urine 1 /hpf (0-5); Specific Gravity,Urine 1.009 (1.001-1.035); Squamous Epithelial Cell,Urine <1 /hpf (0-4); Urobilinogen,Urine <2.0 mg/dL (<2.0); WBC,Urine 8 /hpf (0-5)
--- NOTE | 2025-03-10 14:03 | XR ---
EXAMINATION TYPE: XR chest 2V DATE OF EXAM: 03/10/2025 1:46 PM COMPARISON: None. CLINICAL INDICATION: Female, 74 years old with history of difficulty breathing, TECHNIQUE: XR chest 2V view(s) obtained. FINDINGS: The heart size is normal. The pulmonary vasculature is normal. The lungs are clear. IMPRESSION: 1. No acute pulmonary process. [facility], , 03/10/2025 2:01 PM
[2025-03-10 14:07] LABS: Influenza A Not Detected (Not Detectd); Influenza B Not Detected (Not Detectd); RSV Not Detected (Not Detectd)
== END 2025-03-10 15:02 | disposition home or self-care (01) ==
LOC: EC 12:15
DX: R06.00 Dyspnea, unspecified (principal); Z11.52 Encounter for screening for COVID-19; Z88.1 Allergy status to other antibiotic agents; Z88.2 Allergy status to sulfonamides
CPT/HCPCS: 36415; 71046; 80053; 81001; 83605; 83735; 83880; 84484; 85025; 85610; 85730; 87636; 93005; 99285